=== PATIENT | male | born 1945 | race African-American/Black ===

== ENCOUNTER 2022-10-24 16:22 | Emergency (ER) | payer MEDICAID ==
[~2022-10-24] VITALS: Ht 157.5 cm; Wt 55.9 kg
[2022-10-24 16:23] VITALS: BP 146/76
--- NOTE | 2022-10-24 19:22 | NUR ---
PT PLACED IN BED
[2022-10-24 20:11] LABS: COLOR,URINE YELLOW (Yellow); GLUCOSE, URINE NEGATIVE (Neg); KETONES,URINE 15 mg/dl (Neg); LEUKOCYTE ESTERASE ,URINE TRACE (Neg); NITRITES, URINE NEGATIVE (Neg); OCCULT BLOOD,URINE NEGATIVE (Neg); PROTEIN,URINE NEGATIVE (Neg); UROBILINOGEN,URINE 0.2 E.U/dL (0.2-1.0)
[2022-10-24 20:14] LABS: BASOPHILS % (AUTO) 0.1 % (0-1); EOSINOPHILS % (AUTO) 0.6 % (0-6); HEMATOCRIT 31.2 % (42.0-52.0); HEMOGLOBIN 10.8 g/dl (14.0-17.9); LYMPHOCYTES # (AUTO) 0.8 X10'3 (1.1-4.8); LYMPHOCYTES % (AUTO) 10.3 % (21-51); MEAN CORPUSCULAR HGB CONC 34.7 g/dL (33.0-36.5); MEAN CORPUSCULAR VOLUME 89.3 FL (78-98); MEAN PLATELET VOLUME 7.5 FL (7.4-10.4); MONOCYTES # (AUTO) 0.7 X10'3 (0-0.9); NEUTROPHILS # (AUTO) 6.1 X10'3 (1.8-7.7); PLATELET COUNT 269 X10'3 (140-440); RED CELL DISTRIBUTION WIDTH 13.6 % (11.5-14.5); WHITE BLOOD COUNT 7.7 X10'3 (4.5-11.0)
[2022-10-24 20:16] LABS: CLARITY,URINE SLIGHTLY CLOUDY (Clear); UA COLLECTION TYPE URINAL
[2022-10-24 20:17] LABS: COARSE GRANULAR CAST 0-3 /LPF (NEGATIVE); MUCUS STRANDS FEW /LPF (Neg); SQUAMOUS EPITHELIAL CELL,UR FEW /LPF (FEW)
[2022-10-24 20:18] LABS: BACTERIA,URINE FEW /HPF (Neg); HYALINE CASTS 0-3 /LPF (NEGATIVE); RBC,URINE 0-2 /HPF (0-2); TRANSITIONAL EPI CELLS,URINE FEW /HPF
[2022-10-24 20:19] LABS: ALANINE AMINOTRANSFERASE 21 U/L (12-78); ALBUMIN 3.8 G/DL (3.4-5.0); ALBUMIN/GLOBULIN RATIO 1.3 (1.1-1.5); ALKALINE PHOSPHATASE 59 IU/L (46-116); ANION GAP 9 (8-16); ASPARTATE AMINO TRANSFERASE 25 U/L (10-37); BILIRUBIN,TOTAL 0.8 MG/DL (0.1-1.0); BLOOD UREA NITROGEN 12 MG/DL (7-18); BUN/CREATININE RATIO 12.6 (10.0-20.0); CALCIUM 9.3 MG/DL (8.5-10.1); CHLORIDE 107 MMOL/L (99-107); CREATININE 0.95 MG/DL (0.60-1.10); GLUCOSE 107 MG/DL (70-104); POTASSIUM 3.9 MMOL/L (3.5-5.1); SODIUM 143 MMOL/L (135-145); TOTAL CARBON DIOXIDE 26.7 MMOL/L (24-32); TOTAL PROTEIN 6.8 G/DL (6.4-8.2); eGFR 77 ML/MIN
[2022-10-24 20:19] LABS: WBC CLUMPS,URINE FEW /HPF (NEGATIVE)
[2022-10-24] MEDS ORDERED: furosemide 10 MG/1 ML 10ml inj IV ONE (20:55)
[2022-10-24] MEDS ORDERED: CefTRIAXone 2gm/D5W 50ml BAG 50 ML IV ONE (20:55)
[2022-10-24] MEDS ORDERED: CEPH-585 PO (21:08)
--- NOTE | 2022-10-24 21:42 | NUR ---
IV DC'D PT BEING DISCHARGED DRESSING APPLIED
== END 2022-10-24 21:44 | disposition home or self-care (01) ==
LOC: ER 16:23
DX: N39.0 Urinary tract infection, site not specified (principal); R60.9 Edema, unspecified; I10 Essential (primary) hypertension
CPT/HCPCS: 36415; 80053; 81001; 83880; 85025; 87088; 96365; 96375; 99284; J0696; J1940

== ENCOUNTER 2022-12-10 15:09 | Inpatient (IN) | payer MEDICAID ==
[~2022-12-10] VITALS: Ht 170.2 cm; Wt 56.8 kg
[~2022-12-10 15:09] MED LIST: CEPH-585 PO
[2022-12-10 15:55] LABS: BASOPHILS % (AUTO) 0.2 % (0-1); EOSINOPHILS % (AUTO) 0 % (0-6); HEMATOCRIT 33.7 % (42.0-52.0); HEMOGLOBIN 11.5 g/dl (14.0-17.9); LYMPHOCYTES # (AUTO) 0.2 X10'3 (1.1-4.8); LYMPHOCYTES % (AUTO) 1.3 % (21-51); MEAN CORPUSCULAR HEMOGLOBIN 30.1 PG (27.0-31.0); MEAN CORPUSCULAR HGB CONC 34.2 g/dL (33.0-36.5); MEAN CORPUSCULAR VOLUME 87.9 FL (78-98); MEAN PLATELET VOLUME 7.9 FL (7.4-10.4); MONOCYTES # (AUTO) 1.3 X10'3 (0-0.9); MONOCYTES % (AUTO) 8.2 % (2-12); NEUTROPHILS # (AUTO) 13.9 X10'3 (1.8-7.7); NEUTROPHILS % (AUTO) 90.3 % (42-75); PLATELET COUNT 218 X10'3 (140-440); RED BLOOD COUNT 3.83 X10'6 (4.70-6.10); RED CELL DISTRIBUTION WIDTH 13.9 % (11.5-14.5); WHITE BLOOD COUNT 15.4 X10'3 (4.5-11.0)
[2022-12-10 16:06] LABS: ALANINE AMINOTRANSFERASE 7 U/L (12-78); ALBUMIN 3.4 G/DL (3.4-5.0); ALKALINE PHOSPHATASE 63 IU/L (46-116); ANION GAP 11 (8-16); ASPARTATE AMINO TRANSFERASE 41 U/L (10-37); BILIRUBIN,TOTAL 1.6 MG/DL (0.1-1.0); BLOOD UREA NITROGEN 8 MG/DL (7-18); BUN/CREATININE RATIO 8.7 (10.0-20.0); CALCIUM 9.5 MG/DL (8.5-10.1); CHLORIDE 104 MMOL/L (99-107); CREATININE 0.92 MG/DL (0.60-1.10); GLUCOSE 130 MG/DL (70-104); POTASSIUM 3.5 MMOL/L (3.5-5.1); SODIUM 140 MMOL/L (135-145); TOTAL CARBON DIOXIDE 25.1 MMOL/L (24-32); TOTAL PROTEIN 6.8 G/DL (6.4-8.2); eGFR > 90 ML/MIN
[2022-12-10 16:15] LABS: CLARITY,URINE CLOUDY (Clear); COLOR,URINE YELLOW (Yellow); GLUCOSE, URINE NEGATIVE (Neg); KETONES,URINE NEGATIVE (Neg); LEUKOCYTE ESTERASE ,URINE LARGE (Neg); NITRITES, URINE NEGATIVE (Neg); OCCULT BLOOD,URINE LARGE (Neg); PH,URINE 5.5 (4.8-8.0); PROTEIN,URINE TRACE mg/dl (Neg); UROBILINOGEN,URINE 0.2 E.U/dL (0.2-1.0)
[2022-12-10 16:28] LABS: UA COLLECTION TYPE STRAIGHT CATH
[2022-12-10 16:29] LABS: HYALINE CASTS 0-3 /LPF (NEGATIVE); MUCUS STRANDS FEW /LPF (Neg); SQUAMOUS EPITHELIAL CELL,UR FEW /LPF (FEW)
[2022-12-10 16:30] LABS: BACTERIA,URINE 1+ /HPF (Neg); RBC,URINE TNTC /HPF (0-2); WBC CLUMPS,URINE MANY /HPF (NEGATIVE); WBC,URINE TNTC /HPF (0-4)
[2022-12-10] MEDS ORDERED: CefTRIAXone 1000mg IM Kit (w/lidocaine diluent) IM ONE (17:10)
[2022-12-10] MEDS ORDERED: CefTRIAXone/D5W-Rocephin 1gm 50 ML IV ONE (17:40)
[2022-12-10] MEDS ORDERED: magnesium 4gm in 100ml NS 100 ML IV PRN (18:10)
[2022-12-10] MEDS ORDERED: ondansetron/PF 4mg/2ml inj IV PRN (18:10)
[2022-12-10] MEDS ORDERED: mag hydrox/Alum hydrox/simeth 30ml oral suspension PO PRN (18:10)
[2022-12-10] MEDS ORDERED: potassium Cl 20 mEq SR tablet PO PRN (18:10)
[2022-12-10] MEDS ORDERED: magnesium hydroxide 30ml (MOM) UD suspension PO PRN (18:10)
[2022-12-10] MEDS: normal saline 1000ml 1,000 ML IV SCH ×2 (18:30→23:42)
[2022-12-10] MEDS ORDERED: PERFLUTREN PROTEIN-A MICROSPHR (Optison) 0.22 MG/ML 3ML VIAL IV ONE (18:40)
[2022-12-10] MEDS ORDERED: CARB1TAB36 PO (19:30)
[2022-12-10] MEDS ORDERED: SPIR25TA5 PO (19:30)
[2022-12-10] MEDS ORDERED: LOSA50TA64 PO (19:30)
[2022-12-10] MEDS ORDERED: ASPI81TA52 PO (19:30)
[2022-12-10] MEDS ORDERED: FURO40TA4 PO (19:30)
[2022-12-10] MEDS: carbidoba-levodopa 25-100mg tablet PO SCH (20:49)
[2022-12-10] MEDS: heparin, porcine 5000 units/ml vial SQ SCH (20:51)
[2022-12-11] MEDS: acetaminophen 325mg tablet PO PRN (02:59)
[2022-12-11 03:02] LABS: BASOPHILS % (AUTO) 0.1 % (0-1); EOSINOPHILS % (AUTO) 0.1 % (0-6); HEMATOCRIT 31.4 % (42.0-52.0); HEMOGLOBIN 10.6 g/dl (14.0-17.9); LYMPHOCYTES # (AUTO) 0.8 X10'3 (1.1-4.8); LYMPHOCYTES % (AUTO) 5.4 % (21-51); MEAN CORPUSCULAR HGB CONC 33.8 g/dL (33.0-36.5); MEAN CORPUSCULAR VOLUME 88.9 FL (78-98); MEAN PLATELET VOLUME 8.5 FL (7.4-10.4); MONOCYTES # (AUTO) 1.3 X10'3 (0-0.9); MONOCYTES % (AUTO) 8.5 % (2-12); NEUTROPHILS # (AUTO) 13.3 X10'3 (1.8-7.7); NEUTROPHILS % (AUTO) 85.9 % (42-75); PLATELET COUNT 193 X10'3 (140-440); RED BLOOD COUNT 3.53 X10'6 (4.70-6.10); RED CELL DISTRIBUTION WIDTH 13.6 % (11.5-14.5); WHITE BLOOD COUNT 15.5 X10'3 (4.5-11.0)
--- NOTE | 2022-12-11 03:09 | NUR ---
PT INCONTINENT OF URINE, TOTAL LINEN AND GOWN CHANGE. PICTURES OF PRESSURE ULCERS TAKEN AND PLACED IN CHART. WOUND CARE CONSULT ORDERED. CONDOM CATH APPLIED. PT TURNED OFF OF SACRUM
[2022-12-11 03:18] LABS: ALANINE AMINOTRANSFERASE 9 U/L (12-78); ALBUMIN 3.1 G/DL (3.4-5.0); ALKALINE PHOSPHATASE 59 IU/L (46-116); ANION GAP 10 (8-16); ASPARTATE AMINO TRANSFERASE 54 U/L (10-37); BILIRUBIN,TOTAL 1.4 MG/DL (0.1-1.0); BLOOD UREA NITROGEN 8 MG/DL (7-18); BUN/CREATININE RATIO 9.2 (10.0-20.0); CALCIUM 9.3 MG/DL (8.5-10.1); CHLORIDE 106 MMOL/L (99-107); CREATININE 0.87 MG/DL (0.60-1.10); GLUCOSE 100 MG/DL (70-104); MAGNESIUM 1.9 MG/DL (1.5-2.4); PHOSPHORUS 3.4 MG/DL (2.3-4.5); POTASSIUM 3.7 MMOL/L (3.5-5.1); SODIUM 142 MMOL/L (135-145); TOTAL CARBON DIOXIDE 26.2 MMOL/L (24-32); TOTAL PROTEIN 6.3 G/DL (6.4-8.2); eGFR > 90 ML/MIN
--- NOTE | 2022-12-11 06:24 | NUR ---
ATTEMPTED TO CALL REPORT FLOOR NURSE UNAVAILABLE
--- NOTE | 2022-12-11 06:39 | NUR ---
SECOND ATTEMPT TO CALL REPORT, NURSE UNAVAILABLE TO TAKE REPORT
[2022-12-11 07:43] VITALS: BP 149/78; PULSE 66; RESP 16; TEMP 97.3; O2SAT 98
[2022-12-11 08:00] VITALS: RESP 16
[2022-12-11] MEDS: losartan 50mg tablet PO SCH (08:00)
[2022-12-11] MEDS: aspirin 81mg, enteric-coated 1 TAB TABLET.DR PO SCH (08:00)
[2022-12-11] MEDS: CefTRIAXone/D5W-Rocephin 1gm 50 ML IV SCH (08:19)
[2022-12-11] MEDS: spironolactone 25 MG tablet PO SCH (09:24)
[2022-12-11] MEDS: furosemide 40mg tablet PO SCH (09:28)
[2022-12-11] MEDS: carbidoba-levodopa 25-100mg tablet PO SCH ×4 (09:31→20:10)
[2022-12-11] MEDS: heparin, porcine 5000 units/ml vial SQ SCH ×2 (09:32→20:11)
[2022-12-11 10:32] VITALS: BP 137/76; PULSE 88; RESP 12; TEMP 98.1; O2SAT 99
--- NOTE | 2022-12-11 12:14 | NUR ---
Calorie Count Consult "wound": RD d/w RN, supposed to be wound consult per RN. Pt w/ IAD to coccyx and R buttock per physical assessment pending WOC assessment this admit. Per RN, pt PO 100% breakfast w/ feeder given Parkinson's hx. Will monitor for WOC notes and nutrition intervention needs. Addendum: 12/11/22 at [address] Amended: Links added.
--- NOTE | 2022-12-11 17:46 | NUR ---
Patient has been able to swallow pills and drink water. He is able to answer questions with 3-5 word sentences, he is very lethargic currently. Fluids running as ordered, Q2H turns throughout the day.
[2022-12-11 18:00] VITALS: BP 113/59; PULSE 79; RESP 20; TEMP 98.2; O2SAT 98
--- NOTE | 2022-12-11 18:20 | NUR ---
Report given to Christine
[2022-12-11 22:00] VITALS: BP 127/63; PULSE 77; RESP 18; TEMP 99.1; O2SAT 98
--- NOTE | 2022-12-12 03:48 | NUR ---
Student documentation: I have reviewed and agree with all interventions, assessments performed and documented by EDE Koehler[].
[2022-12-12 06:00] VITALS: BP 123/63; PULSE 74; RESP 18; TEMP 98.8; O2SAT 96
[2022-12-12 06:03] LABS: BASOPHILS % (AUTO) 0.4 % (0-1); EOSINOPHILS % (AUTO) 0.6 % (0-6); HEMATOCRIT 26.4 % (42.0-52.0); LYMPHOCYTES # (AUTO) 0.6 X10'3 (1.1-4.8); LYMPHOCYTES % (AUTO) 11.8 % (21-51); MEAN CORPUSCULAR HEMOGLOBIN 30.2 PG (27.0-31.0); MEAN CORPUSCULAR VOLUME 88.9 FL (78-98); MEAN PLATELET VOLUME 9.4 FL (7.4-10.4); MONOCYTES # (AUTO) 0.4 X10'3 (0-0.9); MONOCYTES % (AUTO) 8.9 % (2-12); NEUTROPHILS # (AUTO) 3.9 X10'3 (1.8-7.7); NEUTROPHILS % (AUTO) 78.3 % (42-75); PLATELET COUNT 162 X10'3 (140-440); RED BLOOD COUNT 2.97 X10'6 (4.70-6.10); RED CELL DISTRIBUTION WIDTH 13.5 % (11.5-14.5)
--- NOTE | 2022-12-12 06:13 | NUR ---
Problems reprioritized. Patient report given, questions answered & plan of care reviewed with Yin LEIVA.
[2022-12-12 06:14] LABS: ALANINE AMINOTRANSFERASE 7 U/L (12-78); ALBUMIN 2.5 G/DL (3.4-5.0); ALBUMIN/GLOBULIN RATIO 0.9 (1.1-1.5); ALKALINE PHOSPHATASE 52 IU/L (46-116); ANION GAP 7 (8-16); ASPARTATE AMINO TRANSFERASE 38 U/L (10-37); BILIRUBIN,TOTAL 0.5 MG/DL (0.1-1.0); BLOOD UREA NITROGEN 14 MG/DL (7-18); BUN/CREATININE RATIO 14.6 (10.0-20.0); CALCIUM 8.2 MG/DL (8.5-10.1); CHLORIDE 107 MMOL/L (99-107); CREATININE 0.96 MG/DL (0.60-1.10); GLUCOSE 88 MG/DL (70-104); MAGNESIUM 1.7 MG/DL (1.5-2.4); POTASSIUM 3.6 MMOL/L (3.5-5.1); SODIUM 142 MMOL/L (135-145); TOTAL CARBON DIOXIDE 27.7 MMOL/L (24-32); TOTAL PROTEIN 5.3 G/DL (6.4-8.2); eGFR > 90 ML/MIN
--- NOTE | 2022-12-12 06:14 | NUR ---
Problems reprioritized. Patient report given, questions answered & plan of care reviewed with Kelli LEIVA.
--- NOTE | 2022-12-12 06:45 | NUR ---
Report received from Summer RN. Questions answered.
[2022-12-12 07:00] VITALS: BP 131/55; PULSE 63; RESP 16; TEMP 98.2; O2SAT 98
--- NOTE | 2022-12-12 07:00 | NUR ---
Assumed patient care, admit alert and appropriate at this time. Introduced myself, oriented to room, call light and fall prevention.
[2022-12-12 08:00] VITALS: RESP 18; O2SAT 96
[2022-12-12] MEDS: CefTRIAXone/D5W-Rocephin 1gm 50 ML IV SCH (08:16)
[2022-12-12] MEDS: furosemide 40mg tablet PO SCH (08:19)
[2022-12-12] MEDS: losartan 50mg tablet PO SCH (08:19)
[2022-12-12] MEDS: aspirin 81mg, enteric-coated 1 TAB TABLET.DR PO SCH (08:19)
[2022-12-12] MEDS: carbidoba-levodopa 25-100mg tablet PO SCH ×4 (08:20→21:24)
[2022-12-12] MEDS: spironolactone 25 MG tablet PO SCH (08:20)
[2022-12-12] MEDS: heparin, porcine 5000 units/ml vial SQ SCH ×2 (08:23→21:25)
[2022-12-12 10:00] VITALS: BP 96/54; PULSE 81; RESP 16; TEMP 98.8; O2SAT 97
--- NOTE | 2022-12-12 15:23 | NUR ---
PRESSURE ULCER EDUCATION: DEFINITION: A pressure ulcer is an area of skin that breaks down when you stay in one position too long. The constant pressure against the skin reduces the blood flow to that area and the affected tissue dies. CAUSES: "Being bedridden or in a wheelchair "Fragile skin "Having a chronic condition, such as diabetes or vascular disease "Inability to move certain parts of your body without assistance "Older age "Incontinence of urine or stool SYMPTOMS: "A reddened area that DOES NOT turn white when pressed on - this can be the beginning of a pressure ulcer "A blister, deep sore or a crater - these can be advanced pressure ulcers FIRST AID: "Relieve the pressure on this area "Keep the area clean and dry "Call your primary doctor if you see any of the above symptoms "DO NOT massage the area "DO NOT use a donut shaped or ring shaped pillow- these actually interfere with the blood flow and cause complications PREVENTION: "Check for pressure ulcers everyday "Change position at least every two hours to relieve pressure "Use items that help relieve pressure- pillows, sheepskin, foam padding, and powders. "Keep skin clean and dry "Eat healthy well balanced meals "Exercise daily IF YOU SEE ANY OF THESE SYMPTOMS WHILE IN THE HOSPITAL - TELL YOUR NURSE IMMEDIATELY. IF YOU SEE ANY OF THESE SYMPTOMS WHILE AT HOME OR HAVE ANY QUESTIONS OR CONCERNS ABOUT PRESSURE ULCERS - CALL YOUR PRIMARY DOCTOR IMMEDIATELY. Addendum: 12/12/22 at 1524 by Netta Drake RN Amended: Links added.
--- NOTE | 2022-12-12 17:30 | NUR ---
I have reviewed and agree with interventions, assessments, and documentation by Yin Flores LVN.
[2022-12-12 18:00] VITALS: BP 119/69; PULSE 78; RESP 16; TEMP 99.3; O2SAT 99
--- NOTE | 2022-12-12 18:29 | NUR ---
Problems reprioritized. Patient report given, questions answered & plan of care reviewed with Aviva Son.
[2022-12-12 22:00] VITALS: BP 139/76; PULSE 80; RESP 18; TEMP 98.3; O2SAT 98
[2022-12-13 06:00] VITALS: BP 130/71; PULSE 66; RESP 16; TEMP 99.1; O2SAT 99
[2022-12-13 06:18] LABS: BASOPHILS % (AUTO) 0.5 % (0-1); EOSINOPHILS # (AUTO) 0.1 X10'3 (0-0.9); EOSINOPHILS % (AUTO) 1.5 % (0-6); HEMATOCRIT 28.9 % (42.0-52.0); HEMOGLOBIN 9.9 g/dl (14.0-17.9); LYMPHOCYTES # (AUTO) 0.5 X10'3 (1.1-4.8); LYMPHOCYTES % (AUTO) 13.3 % (21-51); MEAN CORPUSCULAR HEMOGLOBIN 30.1 PG (27.0-31.0); MEAN CORPUSCULAR HGB CONC 34.2 g/dL (33.0-36.5); MEAN CORPUSCULAR VOLUME 88.1 FL (78-98); MEAN PLATELET VOLUME 8.4 FL (7.4-10.4); MONOCYTES # (AUTO) 0.5 X10'3 (0-0.9); MONOCYTES % (AUTO) 14.7 % (2-12); NEUTROPHILS # (AUTO) 2.6 X10'3 (1.8-7.7); PLATELET COUNT 181 X10'3 (140-440); RED BLOOD COUNT 3.28 X10'6 (4.70-6.10); RED CELL DISTRIBUTION WIDTH 13.3 % (11.5-14.5); WHITE BLOOD COUNT 3.7 X10'3 (4.5-11.0)
[2022-12-13 06:44] LABS: ALANINE AMINOTRANSFERASE 10 U/L (12-78); ALBUMIN 2.7 G/DL (3.4-5.0); ALBUMIN/GLOBULIN RATIO 0.9 (1.1-1.5); ALKALINE PHOSPHATASE 55 IU/L (46-116); ANION GAP 7 (8-16); ASPARTATE AMINO TRANSFERASE 34 U/L (10-37); BILIRUBIN,TOTAL 0.3 MG/DL (0.1-1.0); BLOOD UREA NITROGEN 11 MG/DL (7-18); BUN/CREATININE RATIO 12.1 (10.0-20.0); CALCIUM 8.6 MG/DL (8.5-10.1); CHLORIDE 106 MMOL/L (99-107); CREATININE 0.91 MG/DL (0.60-1.10); GLUCOSE 86 MG/DL (70-104); MAGNESIUM 1.7 MG/DL (1.5-2.4); PHOSPHORUS 2.8 MG/DL (2.3-4.5); POTASSIUM 3.7 MMOL/L (3.5-5.1); SODIUM 142 MMOL/L (135-145); TOTAL CARBON DIOXIDE 29.1 MMOL/L (24-32); TOTAL PROTEIN 5.8 G/DL (6.4-8.2); eGFR > 90 ML/MIN
[2022-12-13] MEDS: CefTRIAXone/D5W-Rocephin 1gm 50 ML IV SCH (07:20)
[2022-12-13] MEDS: acetaminophen 325mg tablet PO PRN (07:32)
[2022-12-13] MEDS: spironolactone 25 MG tablet PO SCH (07:33)
[2022-12-13] MEDS: aspirin 81mg, enteric-coated 1 TAB TABLET.DR PO SCH (07:33)
[2022-12-13] MEDS: heparin, porcine 5000 units/ml vial SQ SCH ×2 (07:33→20:49)
[2022-12-13] MEDS: losartan 50mg tablet PO SCH (07:33)
[2022-12-13] MEDS: furosemide 40mg tablet PO SCH (07:33)
[2022-12-13] MEDS: carbidoba-levodopa 25-100mg tablet PO SCH ×4 (07:33→20:44)
[2022-12-13 08:00] VITALS: RESP 16; O2SAT 99
[2022-12-13 10:00] VITALS: BP 109/58; PULSE 74; RESP 15; TEMP 98.2; O2SAT 98
--- NOTE | 2022-12-13 17:21 | NUR ---
Spoke to patients family about possible transfer to rehab center- agreeable. Explained general process with questions answered to the best of my ability. States they will contact case management.
[2022-12-13 18:00] VITALS: BP 144/78; PULSE 71; RESP 16; TEMP 98.5; O2SAT 99
--- NOTE | 2022-12-13 18:00 | NUR ---
I have reviewed and agree with the interventions, assessments, and documentation by Yin Flores LVN.
--- NOTE | 2022-12-13 18:45 | NUR ---
Patient in room ORTHO 4012. I have received report from Yin Handley and had the opportunity to ask questions and assume patient care.
[2022-12-13 19:50] VITALS: RESP 16; O2SAT 99
[2022-12-13 22:00] VITALS: BP 140/77; PULSE 71; RESP 14; TEMP 98.7; O2SAT 100
[2022-12-14 06:00] VITALS: BP 127/72; PULSE 67; RESP 16; TEMP 98; O2SAT 99
--- NOTE | 2022-12-14 06:30 | NUR ---
Problems reprioritized. Patient report given, questions answered & plan of care reviewed with Yin LEIVA.
[2022-12-14 06:53] LABS: BASOPHILS % (AUTO) 0.8 % (0-1); EOSINOPHILS # (AUTO) 0.1 X10'3 (0-0.9); EOSINOPHILS % (AUTO) 2.3 % (0-6); HEMATOCRIT 29.7 % (42.0-52.0); HEMOGLOBIN 10.2 g/dl (14.0-17.9); LYMPHOCYTES # (AUTO) 0.8 X10'3 (1.1-4.8); LYMPHOCYTES % (AUTO) 21.3 % (21-51); MEAN CORPUSCULAR HEMOGLOBIN 30.2 PG (27.0-31.0); MEAN CORPUSCULAR HGB CONC 34.2 g/dL (33.0-36.5); MEAN CORPUSCULAR VOLUME 88.2 FL (78-98); MEAN PLATELET VOLUME 8.2 FL (7.4-10.4); MONOCYTES # (AUTO) 0.7 X10'3 (0-0.9); MONOCYTES % (AUTO) 19.6 % (2-12); PLATELET COUNT 213 X10'3 (140-440); RED BLOOD COUNT 3.36 X10'6 (4.70-6.10); RED CELL DISTRIBUTION WIDTH 13.4 % (11.5-14.5); WHITE BLOOD COUNT 3.5 X10'3 (4.5-11.0)
[2022-12-14 07:08] LABS: ALANINE AMINOTRANSFERASE 11 U/L (12-78); ALBUMIN 2.7 G/DL (3.4-5.0); ALBUMIN/GLOBULIN RATIO 0.8 (1.1-1.5); ALKALINE PHOSPHATASE 60 IU/L (46-116); ANION GAP 4 (8-16); ASPARTATE AMINO TRANSFERASE 35 U/L (10-37); BILIRUBIN,TOTAL 0.3 MG/DL (0.1-1.0); BLOOD UREA NITROGEN 14 MG/DL (7-18); BUN/CREATININE RATIO 17.1 (10.0-20.0); CALCIUM 8.9 MG/DL (8.5-10.1); CHLORIDE 107 MMOL/L (99-107); CREATININE 0.82 MG/DL (0.60-1.10); GLUCOSE 87 MG/DL (70-104); MAGNESIUM 2.1 MG/DL (1.5-2.4); PHOSPHORUS 2.9 MG/DL (2.3-4.5); POTASSIUM 4.3 MMOL/L (3.5-5.1); SODIUM 140 MMOL/L (135-145); TOTAL CARBON DIOXIDE 29.4 MMOL/L (24-32); eGFR > 90 ML/MIN
[2022-12-14 08:00] VITALS: RESP 14; O2SAT 100
[2022-12-14 08:27] LABS: TOTAL CELLS COUNTED 100
[2022-12-14 08:29] LABS: PLATELET ESTIMATE NORMAL
[2022-12-14] MEDS: aspirin 81mg, enteric-coated 1 TAB TABLET.DR PO SCH (08:36)
[2022-12-14] MEDS: furosemide 40mg tablet PO SCH (08:36)
[2022-12-14] MEDS: carbidoba-levodopa 25-100mg tablet PO SCH ×4 (08:36→20:54)
[2022-12-14] MEDS: losartan 50mg tablet PO SCH (08:36)
[2022-12-14] MEDS: spironolactone 25 MG tablet PO SCH (08:36)
[2022-12-14] MEDS: heparin, porcine 5000 units/ml vial SQ SCH ×2 (08:37→20:56)
[2022-12-14 10:00] VITALS: BP 99/57; PULSE 80; RESP 14; TEMP 98; O2SAT 100
[2022-12-14] MEDS: CefTRIAXone/D5W-Rocephin 1gm 50 ML IV SCH (10:20)
--- NOTE | 2022-12-14 10:35 | NUR ---
F/u 12/13: Pt w/ coccyx III and R buttock II PI's per WOC note. Pt admit DX UTI, SOB, and coccyx stage3 wound w/ hx Parkinson's per EMR. PO ~100% avg Na-restricted diet meeting estimated needs though would benefit from Josias smoothie BID for wound healing; ABHILASH d/w RN and MD at pt bedside who is agreeable. Pending physician ONS orders in EMR. Pt received assistance w/ meals given hx and no texture changes per IMPROVEMENT ADVISOR recs. LBM 12/12 received PRN MoM 12/13 per EMR. Will continue to follow. Rec: 1. continue Na-restricted diet; assistance w/ meals 2. Josias smoothie BID for wound healing; pending physician orders in EMR 3. routine bowel care 4. scaled wt this admit; subsequent weekly wt Addendum: 12/14/22 at [address] Amended: Links added.
[2022-12-14] MEDS ORDERED: bisacodyl 10mg suppository rectal RC PRN (12:50)
[2022-12-14] MEDS: JUVEN Shake w/Arg/Glut/Ca2+Bmb (Juven 19.3gm) pkt 240ml PO SCH ×2 (13:00→18:12)
[2022-12-14 18:00] VITALS: BP 121/73; PULSE 70; RESP 17; TEMP 98.5; O2SAT 100
--- NOTE | 2022-12-14 18:00 | NUR ---
I have reviewed and agree with interventions, assessments, and documentation by Yin Flores LVN.
[2022-12-14 20:00] VITALS: RESP 14; O2SAT 100
[2022-12-14] MEDS: docusate sod 100mg capsule PO SCH (20:54)
[2022-12-14] MEDS: polyethylene glycol 3350 17gm powd pack PO SCH (20:56)
--- NOTE | 2022-12-14 23:11 | NUR ---
Patient in room ORTHO 4012. I have received report from kimberlyn duenas and had the opportunity to ask questions and assume patient care.
--- NOTE | 2022-12-14 23:52 | NUR ---
COMMUTER TRAIN OPERATOR documentation: I have reviewed and agree with all interventions, assessments performed and documented by Yin LEIVA .
--- NOTE | 2022-12-15 02:14 | NUR ---
Problems reprioritized. Patient report given, questions answered & plan of care reviewed with damon jang.
[2022-12-15 06:00] VITALS: BP 144/86; PULSE 70; RESP 16; TEMP 98.1; O2SAT 100
--- NOTE | 2022-12-15 06:30 | NUR ---
Patient in room ORTHO 4012. I have received report from Lenora EAST and had the opportunity to ask questions and assume patient care.
--- NOTE | 2022-12-15 06:40 | NUR ---
Report to Angle Cowan.
[2022-12-15 06:49] LABS: BASOPHILS % (AUTO) 0.8 % (0-1); EOSINOPHILS # (AUTO) 0.1 X10'3 (0-0.9); EOSINOPHILS % (AUTO) 2.4 % (0-6); HEMATOCRIT 32.8 % (42.0-52.0); HEMOGLOBIN 11.2 g/dl (14.0-17.9); LYMPHOCYTES # (AUTO) 0.8 X10'3 (1.1-4.8); LYMPHOCYTES % (AUTO) 18.6 % (21-51); MEAN CORPUSCULAR HEMOGLOBIN 29.9 PG (27.0-31.0); MEAN CORPUSCULAR HGB CONC 34.1 g/dL (33.0-36.5); MEAN CORPUSCULAR VOLUME 87.8 FL (78-98); MEAN PLATELET VOLUME 7.8 FL (7.4-10.4); MONOCYTES # (AUTO) 0.7 X10'3 (0-0.9); MONOCYTES % (AUTO) 16.6 % (2-12); NEUTROPHILS # (AUTO) 2.7 X10'3 (1.8-7.7); NEUTROPHILS % (AUTO) 61.6 % (42-75); PLATELET COUNT 252 X10'3 (140-440); RED BLOOD COUNT 3.74 X10'6 (4.70-6.10); RED CELL DISTRIBUTION WIDTH 13.4 % (11.5-14.5); WHITE BLOOD COUNT 4.3 X10'3 (4.5-11.0)
[2022-12-15 07:05] LABS: ALANINE AMINOTRANSFERASE 18 U/L (12-78); ALBUMIN 2.9 G/DL (3.4-5.0); ALBUMIN/GLOBULIN RATIO 0.8 (1.1-1.5); ALKALINE PHOSPHATASE 56 IU/L (46-116); ANION GAP 7 (8-16); ASPARTATE AMINO TRANSFERASE 30 U/L (10-37); BILIRUBIN,TOTAL 0.3 MG/DL (0.1-1.0); BLOOD UREA NITROGEN 17 MG/DL (7-18); BUN/CREATININE RATIO 22.7 (10.0-20.0); CALCIUM 9.5 MG/DL (8.5-10.1); CHLORIDE 105 MMOL/L (99-107); CREATININE 0.75 MG/DL (0.60-1.10); GLUCOSE 95 MG/DL (70-104); MAGNESIUM 2.2 MG/DL (1.5-2.4); PHOSPHORUS 2.9 MG/DL (2.3-4.5); POTASSIUM 4.4 MMOL/L (3.5-5.1); SODIUM 140 MMOL/L (135-145); TOTAL CARBON DIOXIDE 28.3 MMOL/L (24-32); TOTAL PROTEIN 6.4 G/DL (6.4-8.2); eGFR > 90 ML/MIN
[2022-12-15 08:00] VITALS: RESP 16; O2SAT 100
[2022-12-15] MEDS: JUVEN Shake w/Arg/Glut/Ca2+Bmb (Juven 19.3gm) pkt 240ml PO SCH ×3 (08:00→18:50)
[2022-12-15] MEDS: CefTRIAXone/D5W-Rocephin 1gm 50 ML IV SCH ×2 (08:12→08:50)
[2022-12-15] MEDS: heparin, porcine 5000 units/ml vial SQ SCH ×2 (09:15→20:04)
[2022-12-15] MEDS: furosemide 40mg tablet PO SCH (09:16)
[2022-12-15] MEDS: losartan 50mg tablet PO SCH (09:16)
[2022-12-15] MEDS: carbidoba-levodopa 25-100mg tablet PO SCH ×4 (09:16→23:00)
[2022-12-15] MEDS: docusate sod 100mg capsule PO SCH ×2 (09:16→20:03)
[2022-12-15] MEDS: spironolactone 25 MG tablet PO SCH (09:17)
[2022-12-15] MEDS: aspirin 81mg, enteric-coated 1 TAB TABLET.DR PO SCH (09:17)
[2022-12-15 09:45] LABS: TOTAL CELLS COUNTED 100
[2022-12-15 09:46] LABS: LARGE PLATELETS FEW; PLATELET ESTIMATE NORMAL
--- NOTE | 2022-12-15 15:45 | NUR ---
ROCK CLIMBING INSTRUCTOR documentation: I have reviewed and agree with all interventions, assessments performed and documented by Angle Hartmann LVN .
[2022-12-15 18:00] VITALS: BP 100/63; PULSE 76; RESP 16; TEMP 98.1; O2SAT 99
--- NOTE | 2022-12-15 18:36 | NUR ---
Problems reprioritized. Patient report given, questions answered & plan of care reviewed with Padmini EAST.
--- NOTE | 2022-12-15 18:56 | NUR ---
Patient in room ORTHO 4012. I have received report from CALI GODWIN and had the opportunity to ask questions and assume patient care.
[2022-12-15 20:00] VITALS: RESP 16; O2SAT 99
[2022-12-15] MEDS: polyethylene glycol 3350 17gm powd pack PO SCH (20:03)
[2022-12-15 22:00] VITALS: BP 97/59; PULSE 86; RESP 14; TEMP 99.9; O2SAT 96
--- NOTE | 2022-12-16 00:42 | NUR ---
Problems reprioritized. Patient report given, questions answered & plan of care reviewed with CRUZITO GOMEZ AND CALI GUTIERREZ.
--- NOTE | 2022-12-16 00:45 | NUR ---
Patient in room ORTHO 4012. I have received report from Padmini EAST and had the opportunity to ask questions and assume patient care.
--- NOTE | 2022-12-16 03:14 | NUR ---
Patient in room ORTHO 4012. I have received report from wallace jang and had the opportunity to ask questions and assume patient care.
--- NOTE | 2022-12-16 04:10 | NUR ---
primary biology internship: I have reviewed and agree with all interventions, assessments performed and documented by Padmini RN.
[2022-12-16 06:00] VITALS: BP 100/56; PULSE 75; RESP 13; TEMP 98.1; O2SAT 99
--- NOTE | 2022-12-16 06:40 | NUR ---
Problems reprioritized. Patient report given, questions answered & plan of care reviewed with Eric EAST.
[2022-12-16] MEDS: carbidoba-levodopa 25-100mg tablet PO SCH ×4 (07:50→21:19)
[2022-12-16] MEDS: aspirin 81mg, enteric-coated 1 TAB TABLET.DR PO SCH (07:50)
[2022-12-16] MEDS: CefTRIAXone/D5W-Rocephin 1gm 50 ML IV SCH (07:50)
[2022-12-16] MEDS: docusate sod 100mg capsule PO SCH ×2 (07:50→21:19)
[2022-12-16] MEDS: heparin, porcine 5000 units/ml vial SQ SCH ×2 (07:51→21:19)
[2022-12-16 08:00] VITALS: RESP 13; O2SAT 99
[2022-12-16] MEDS: losartan 50mg tablet PO SCH (08:00)
[2022-12-16] MEDS: spironolactone 25 MG tablet PO SCH (08:00)
[2022-12-16] MEDS: furosemide 40mg tablet PO SCH (08:00)
[2022-12-16] MEDS: JUVEN Shake w/Arg/Glut/Ca2+Bmb (Juven 19.3gm) pkt 240ml PO SCH ×3 (08:03→17:47)
[2022-12-16 10:00] VITALS: BP 108/61; PULSE 77; RESP 18; TEMP 97.8; O2SAT 98
--- NOTE | 2022-12-16 16:21 | NUR ---
gave pt bed bath and tolerated well and changed linens
[2022-12-16 18:00] VITALS: BP 111/67; PULSE 55; RESP 18; TEMP 98.6; O2SAT 98
--- NOTE | 2022-12-16 18:15 | NUR ---
Patient in room ORTHO 4012. I have received report from CRUZITO Reyes and had the opportunity to ask questions and assume patient care.
--- NOTE | 2022-12-16 18:41 | NUR ---
informed resident about pt low bp and that meds were held this am. bp does have a map of above 60. resident said can reevaluate tomorrow
--- NOTE | 2022-12-16 18:43 | NUR ---
Problems reprioritized. Patient report given, questions answered & plan of care reviewed with miladis jang.
--- NOTE | 2022-12-16 19:01 | NUR ---
Patient in room ORTHO 4011. I have received report from Eric EAST and had the opportunity to ask questions and assume patient care.
[2022-12-16 19:06] VITALS: BP 111/67; PULSE 55; RESP 18; TEMP 98.6; O2SAT 98
[2022-12-16] MEDS: polyethylene glycol 3350 17gm powd pack PO SCH (21:00)
[2022-12-16 22:00] VITALS: BP 117/70; PULSE 58; RESP 16; TEMP 98.6; O2SAT 95
[2022-12-17] VITALS (7 sets, daily range): BP systolic 86–123; BP diastolic 57–68; PULSE 60–98; RESP 14–16; TEMP 97.8–98.8; O2SAT 98–100
--- NOTE | 2022-12-17 06:18 | NUR ---
Problems reprioritized. Patient report given, questions answered & plan of care reviewed with CALI Barbour.
--- NOTE | 2022-12-17 06:20 | NUR ---
Patient in room ORTHO 4012. I have received report from Padmini ESAT/Akil LEIVA and had the opportunity to ask questions and assume patient care.
--- NOTE | 2022-12-17 06:24 | NUR ---
Problems reprioritized. Patient report given, questions answered & plan of care reviewed with Angle LEIVA.
[2022-12-17] MEDS: docusate sod 100mg capsule PO SCH ×2 (08:00→19:58)
[2022-12-17] MEDS: JUVEN Shake w/Arg/Glut/Ca2+Bmb (Juven 19.3gm) pkt 240ml PO SCH ×2 (08:00→18:00)
[2022-12-17] MEDS: carbidoba-levodopa 25-100mg tablet PO SCH ×4 (09:01→23:28)
[2022-12-17] MEDS: furosemide 40mg tablet PO SCH (09:01)
[2022-12-17] MEDS: aspirin 81mg, enteric-coated 1 TAB TABLET.DR PO SCH (09:02)
[2022-12-17] MEDS: losartan 50mg tablet PO SCH (09:02)
[2022-12-17] MEDS: spironolactone 25 MG tablet PO SCH (09:03)
[2022-12-17] MEDS: heparin, porcine 5000 units/ml vial SQ SCH ×2 (09:03→19:58)
[2022-12-17 11:01] LABS: BASOPHILS % (AUTO) 0.7 % (0-1); EOSINOPHILS # (AUTO) 0.1 X10'3 (0-0.9); HEMATOCRIT 35.5 % (42.0-52.0); HEMOGLOBIN 12.1 g/dl (14.0-17.9); LYMPHOCYTES % (AUTO) 14.6 % (21-51); MEAN CORPUSCULAR HEMOGLOBIN 30.2 PG (27.0-31.0); MEAN CORPUSCULAR HGB CONC 33.9 g/dL (33.0-36.5); MEAN CORPUSCULAR VOLUME 88.9 FL (78-98); MEAN PLATELET VOLUME 7.7 FL (7.4-10.4); MONOCYTES # (AUTO) 0.7 X10'3 (0-0.9); MONOCYTES % (AUTO) 11.2 % (2-12); NEUTROPHILS # (AUTO) 4.7 X10'3 (1.8-7.7); NEUTROPHILS % (AUTO) 72.5 % (42-75); PLATELET COUNT 337 X10'3 (140-440); RED CELL DISTRIBUTION WIDTH 13.5 % (11.5-14.5); WHITE BLOOD COUNT 6.5 X10'3 (4.5-11.0)
[2022-12-17 11:06] LABS: ALBUMIN 3.3 G/DL (3.4-5.0); ANION GAP 9 (8-16); BLOOD UREA NITROGEN 29 MG/DL (7-18); BUN/CREATININE RATIO 32.2 (10.0-20.0); CALCIUM 9.4 MG/DL (8.5-10.1); CHLORIDE 104 MMOL/L (99-107); GLUCOSE 144 MG/DL (70-104); POTASSIUM 4.4 MMOL/L (3.5-5.1); SODIUM 139 MMOL/L (135-145); TOTAL CARBON DIOXIDE 25.9 MMOL/L (24-32); eGFR > 90 ML/MIN
[2022-12-17] MEDS ORDERED: CefTRIAXone/D5W-Rocephin 1gm 50 ML IV ONE (15:00)
--- NOTE | 2022-12-17 15:13 | NUR ---
SALES PLANNING MANAGER documentation: I have reviewed and agree with all interventions, assessments performed and documented by Angle Hartmann LVN.
--- NOTE | 2022-12-17 18:20 | NUR ---
Patient in room ORTHO 4012. I have received report from CALI GODWIN and had the opportunity to ask questions and assume patient care.
--- NOTE | 2022-12-17 18:49 | NUR ---
Problems reprioritized. Patient report given, questions answered & plan of care reviewed with Padmini EAST.
[2022-12-17] MEDS: polyethylene glycol 3350 17gm powd pack PO SCH (19:59)
[2022-12-18 00:42] VITALS: BP 102/55; PULSE 78; RESP 18; TEMP 98.7; O2SAT 100
[2022-12-18 06:00] VITALS: BP 111/66; PULSE 78; RESP 16; TEMP 97.8; O2SAT 100
--- NOTE | 2022-12-18 06:24 | NUR ---
Problems reprioritized. Patient report given, questions answered & plan of care reviewed with CRUZITO FERNANDO.
[2022-12-18] MEDS: JUVEN Shake w/Arg/Glut/Ca2+Bmb (Juven 19.3gm) pkt 240ml PO SCH ×3 (08:00→18:00)
[2022-12-18 09:30] VITALS: RESP 18
[2022-12-18] MEDS: carbidoba-levodopa 25-100mg tablet PO SCH ×4 (09:39→20:36)
[2022-12-18] MEDS: docusate sod 100mg capsule PO SCH ×2 (09:39→20:36)
[2022-12-18] MEDS: aspirin 81mg, enteric-coated 1 TAB TABLET.DR PO SCH (09:40)
[2022-12-18] MEDS: furosemide 40mg tablet PO SCH (09:40)
[2022-12-18] MEDS: losartan 50mg tablet PO SCH (09:41)
[2022-12-18] MEDS: heparin, porcine 5000 units/ml vial SQ SCH ×2 (09:45→20:37)
[2022-12-18] MEDS: spironolactone 25 MG tablet PO SCH (09:52)
[2022-12-18 10:55] VITALS: BP 115/67; PULSE 84; RESP 14; TEMP 98.1; O2SAT 100
[2022-12-18 18:00] VITALS: BP 95/56; PULSE 81; RESP 18; TEMP 97.6; O2SAT 100
--- NOTE | 2022-12-18 18:24 | NUR ---
Problems reprioritized. Patient report given, questions answered & plan of care reviewed with Christine EAST.
[2022-12-18] MEDS: polyethylene glycol 3350 17gm powd pack PO SCH (20:36)
--- NOTE | 2022-12-19 04:16 | NUR ---
GARMENT SEWER HAND documentation: I have reviewed and agree with assessment performed and documented by EDE Guallpa
[2022-12-19 06:20] VITALS: BP 121/65; PULSE 72; RESP 18; TEMP 97.5; O2SAT 100
--- NOTE | 2022-12-19 06:40 | NUR ---
Problems reprioritized. Patient report given, questions answered & plan of care reviewed with kavon EAST.
[2022-12-19] MEDS: JUVEN Shake w/Arg/Glut/Ca2+Bmb (Juven 19.3gm) pkt 240ml PO SCH ×2 (08:00→13:13)
[2022-12-19 08:30] VITALS: RESP 16
[2022-12-19] MEDS: furosemide 40mg tablet PO SCH (08:43)
[2022-12-19] MEDS: docusate sod 100mg capsule PO SCH (08:43)
[2022-12-19] MEDS: aspirin 81mg, enteric-coated 1 TAB TABLET.DR PO SCH (08:43)
[2022-12-19] MEDS: carbidoba-levodopa 25-100mg tablet PO SCH ×2 (08:43→13:09)
[2022-12-19] MEDS: losartan 50mg tablet PO SCH (08:44)
[2022-12-19] MEDS: heparin, porcine 5000 units/ml vial SQ SCH (08:45)
[2022-12-19] MEDS: spironolactone 25 MG tablet PO SCH (08:51)
[2022-12-19 10:00] VITALS: BP 121/70; PULSE 94; RESP 14; TEMP 98.1; O2SAT 100
--- NOTE | 2022-12-19 11:51 | NUR ---
F/u 12/19: Pt PO 100% Josias shake TIDWM per MD and mostly ~100% Na-restricted diet meeting estimated needs. LBM 12/18 receiving routine colace and miralax per EMR. No further nutrition interventions at this time. Will continue to follow. Rec: 1. continue Na-restricted diet; assistance w/ meals 2. Josias shake TIDWM per MD for wounds 3. bowel care per rx 4. scaled wt this admit; subsequent weekly wt Addendum: 12/19/22 at [address] Amended: Links added.
[2022-12-19] MEDS ORDERED: DOCU100C40 PO (13:59)
--- NOTE | 2022-12-19 16:17 | NUR ---
IV removed, education completed with family, verbal acknowledgement of understanding completed. Supplies sent with family, CC still on patient at family request.
== END 2022-12-19 16:20 | disposition home health service (06) | DRG 194 ==
LOC: ER 15:09 → ED HOLD 18:23 → EDBEDREQ 12-11 05:58 → ORTHO 4S 12-11 07:20
PROVIDERS: ADMIT Family Medicine; ATTEND Family Medicine
DX: I11.0 Hypertensive heart disease with heart failure (principal); L89.153 Pressure ulcer of sacral region, stage 3; R53.2 Functional quadriplegia; G20 Parkinson's disease; I50.33 Acute on chronic diastolic (congestive) heart failure; N30.01 Acute cystitis with hematuria; R32 Unspecified urinary incontinence; Z91.148 Patient's other noncompliance with medication regimen for other reason; Z86.73 Personal history of transient ischemic attack (TIA), and cerebral infarction without residual deficits; Z74.01 Bed confinement status
CPT/HCPCS: 36415; 71045; 76700; 80048; 80053; 81001; 83605; 83735; 83880; 84100; 84145; 84484; 85007; 85025; 87040; 87077; 87081; 87088; 87186; 92508; 92616; 93306; 97110; 97116; 97161; 97530; 97535; 99285; A4314; A4349; A4649; A6212; A6213; A6222; A6446; A6449; C1758; G0378; J0696; J1644; J7030; J7040

== ENCOUNTER 2024-01-23 15:28 | Emergency (ER) | payer MEDICAID ==
[~2024-01-23] VITALS: Ht 167.6 cm; Wt 51.5 kg
[~2024-01-23 15:28] MED LIST changes: +ASPI81TA52 PO; +CARB1TAB36 PO; -CEPH-585 PO; +DOCU100C40 PO; +FURO40TA4 PO; +LOSA50TA64 PO; +SPIR25TA5 PO
[2024-01-23 16:37] LABS: BASOPHILS % (AUTO) 0.6 % (0-1); EOSINOPHILS % (AUTO) 0.5 % (0-6); HEMATOCRIT 32.1 % (42.0-52.0); HEMOGLOBIN 10.8 g/dl (14.0-17.9); LYMPHOCYTES % (AUTO) 17.3 % (21-51); MEAN CORPUSCULAR HEMOGLOBIN 30.1 PG (27.0-31.0); MEAN CORPUSCULAR HGB CONC 33.7 g/dL (33.0-36.5); MEAN CORPUSCULAR VOLUME 89.3 FL (78-98); MEAN PLATELET VOLUME 7.8 FL (7.4-10.4); MONOCYTES # (AUTO) 0.7 X10'3 (0-0.9); MONOCYTES % (AUTO) 12.6 % (2-12); PLATELET COUNT 289 X10'3 (140-440); RED CELL DISTRIBUTION WIDTH 13.8 % (11.5-14.5); WHITE BLOOD COUNT 5.9 X10'3 (4.5-11.0)
[2024-01-23 16:52] VITALS: TEMP 98
[2024-01-23 16:55] LABS: ALBUMIN 3.9 G/DL (3.4-5.0); ANION GAP 9 (8-16); BLOOD UREA NITROGEN 19 MG/DL (7-18); BUN/CREATININE RATIO 16.2 (10.0-20.0); CALCIUM 9.7 MG/DL (8.5-10.1); CHLORIDE 108 MMOL/L (99-107); CREATININE 1.17 MG/DL (0.60-1.10); GLUCOSE 86 MG/DL (70-104); POTASSIUM 4.2 MMOL/L (3.5-5.1); PRO BRAIN NATRIURETIC PEPTIDE 129 PG/ML (0-450); SODIUM 144 MMOL/L (135-145); TOTAL CARBON DIOXIDE 27.3 MMOL/L (24-32); eCRCL 39 ML/MIN; eGFR 73 ML/MIN
[2024-01-23] MEDS ORDERED: iohexol 350MG/ML 100ml bottle IV ONE (18:09)
[2024-01-23 18:26] LABS: ALANINE AMINOTRANSFERASE 12 U/L (12-78); ALBUMIN/GLOBULIN RATIO 1.2 (1.1-1.5); ALKALINE PHOSPHATASE 59 IU/L (46-116); ASPARTATE AMINO TRANSFERASE 15 U/L (10-37); BILIRUBIN,DIRECT 0.3 MG/DL (0-0.3); BILIRUBIN,TOTAL 1.4 MG/DL (0.1-1.0); LIPASE 22 U/L (16-77); TOTAL PROTEIN 7.2 G/DL (6.4-8.2)
[2024-01-23 20:05] VITALS: BP 134/82; O2SAT 100
[2024-01-23 20:51] VITALS: PULSE 82; RESP 14
== END 2024-01-23 20:52 | disposition home or self-care (01) ==
LOC: ER 15:29
DX: R06.02 Shortness of breath (principal); I10 Essential (primary) hypertension; G20.A1 Parkinson's disease without dyskinesia, without mention of fluctuations; Z79.82 Long term (current) use of aspirin; Z79.899 Other long term (current) drug therapy; Z86.73 Personal history of transient ischemic attack (TIA), and cerebral infarction without residual deficits
CPT/HCPCS: 36415; 71045; 71275; 74177; 80048; 80076; 83605; 83690; 83880; 85025; 87040; 99285; Q9967

== ENCOUNTER 2024-02-01 12:20 | Inpatient (IN) | payer MEDICAID ==
[~2024-02-01] VITALS: Ht 175.3 cm; Wt 57.5 kg
[2024-02-01] MEDS ORDERED: iohexol 350MG/ML 100ml bottle IV ONE (12:23)
[2024-02-01] MEDS: normal saline 1000ml 1,000 ML IVB ONE ×2 (12:35→13:40)
[2024-02-01 12:54] LABS: BASOPHILS % (AUTO) 0.4 % (0-1); EOSINOPHILS % (AUTO) 0.2 % (0-6); HEMATOCRIT 29.3 % (42.0-52.0); HEMOGLOBIN 10.2 g/dl (14.0-17.9); LYMPHOCYTES # (AUTO) 1.3 X10'3 (1.1-4.8); LYMPHOCYTES % (AUTO) 23.3 % (21-51); MEAN CORPUSCULAR HEMOGLOBIN 30.8 PG (27.0-31.0); MEAN CORPUSCULAR HGB CONC 34.9 g/dL (33.0-36.5); MEAN CORPUSCULAR VOLUME 88.3 FL (78-98); MONOCYTES # (AUTO) 0.5 X10'3 (0-0.9); MONOCYTES % (AUTO) 9.5 % (2-12); NEUTROPHILS # (AUTO) 3.8 X10'3 (1.8-7.7); NEUTROPHILS % (AUTO) 66.6 % (42-75); PLATELET COUNT 289 X10'3 (140-440); RED BLOOD COUNT 3.32 X10'6 (4.70-6.10); WHITE BLOOD COUNT 5.7 X10'3 (4.5-11.0)
[2024-02-01 13:04] LABS: APTT 24 SECONDS (22-32); INR 1.1 INR; PROTHROMBIN TIME 11.4 SECONDS (9.0-12.0)
[2024-02-01 13:09] LABS: ALBUMIN 3.6 G/DL (3.4-5.0); ANION GAP 8 (8-16); BLOOD UREA NITROGEN 21 MG/DL (7-18); CALCIUM 9.4 MG/DL (8.5-10.1); CHLORIDE 105 MMOL/L (99-107); GLUCOSE 129 MG/DL (70-104); POTASSIUM 4.1 MMOL/L (3.5-5.1); SODIUM 140 MMOL/L (135-145); TOTAL CARBON DIOXIDE 26.6 MMOL/L (24-32); eCRCL 40 ML/MIN; eGFR 55 ML/MIN
[2024-02-01 14:09] LABS: BILIRUBIN,URINE NEGATIVE (Neg); CLARITY,URINE CLEAR (Clear); COLOR,URINE YELLOW (Yellow); GLUCOSE, URINE NEGATIVE (Neg); KETONES,URINE NEGATIVE (Neg); LEUKOCYTE ESTERASE ,URINE NEGATIVE (Neg); NITRITES, URINE NEGATIVE (Neg); OCCULT BLOOD,URINE MODERATE (Neg); PROTEIN,URINE NEGATIVE (Neg); UROBILINOGEN,URINE 0.2 E.U/dL (0.2-1.0)
[2024-02-01 14:11] LABS: UA COLLECTION TYPE FOLEY CATH
[2024-02-01] MEDS: ringers solution, lactated 1000ml IV soln IV ONE (14:11)
[2024-02-01 14:15] LABS: BACTERIA,URINE NONE SEEN /HPF (Neg); MUCUS STRANDS NONE SEEN /LPF (Neg); RBC,URINE 50-100 /HPF (0-2); SQUAMOUS EPITHELIAL CELL,UR FEW /LPF (FEW); WBC,URINE 0-4 /HPF (0-4)
[2024-02-01] MEDS: piperacillin/tazo 3.375gm/50ml 50 ML IV ONE (15:44)
[2024-02-01] MEDS: normal saline 1000ml 1,000 ML IV SCH (16:30)
[2024-02-01] MEDS ORDERED: DEXTROSE 15 GM of carb/4 tabs (each vial/BOTTLE has 4 tablets) PO PRN ×2 (16:30)
[2024-02-01] MEDS: aspirin 81mg, enteric-coated 1 TAB TABLET.DR PO ONE (16:30)
[2024-02-01] MEDS ORDERED: glucagon, human recombinant 1mg kit SUBCUT PRN (16:30)
[2024-02-01] MEDS ORDERED: dextrose 50%-water 50ml dispensing syringe IV PRN ×2 (16:30)
[2024-02-01] MEDS ORDERED: ipratropium/albuterol 3ml nebule NEB PRN (16:30)
[2024-02-01] MEDS ORDERED: magnesium sulf-water 4G/100mL 100 ML IV PRN (17:00)
[2024-02-01] MEDS ORDERED: potassium Cl 40MEQ/1/2NS 520ml 520 ML IV PRN (17:00)
[2024-02-01] MEDS: INSULIN LISPRO 100 UNIT/ML INSULN.PEN MULTI-DOSE SQ SCH (17:00)
[2024-02-01] MEDS ORDERED: magnesium sulf-water 2g/50mL 50 ML IV PRN (17:00)
[2024-02-01] MEDS: dextrose 5%-water 1,000 ML IV SCH (17:07)
[2024-02-01 17:44] VITALS: PULSE 90; RESP 24; O2SAT 97
[2024-02-01] MEDS: metoprolol tartrate 1mg/ml inj IV SCH (18:00)
[2024-02-01] MEDS ORDERED: GLYC1TAB23 PO (18:08)
[2024-02-01] MEDS ORDERED: ROPI0.5T37 PO (18:08)
[2024-02-01] MEDS ORDERED: DOCU-391 PO (18:08)
[2024-02-01] MEDS ORDERED: CHOL500050 PO (18:08)
[2024-02-01] MEDS ORDERED: CARB1CAP3 PO (18:08)
[2024-02-01] MEDS: K and/or MAG REPLACEMENT MC SCH (20:00)
[2024-02-01] MEDS: carbidoba-levodopa 25-100mg tablet PO SCH (20:31)
[2024-02-01] MEDS: apixaban 5mg tablet PO SCH (20:31)
[2024-02-01] MEDS: atorvastatin 20mg tablet PO SCH (20:31)
[2024-02-01 20:43] VITALS: PULSE 85; RESP 14; O2SAT 99
[2024-02-01] MEDS: HYDROcodone/acetaminophen 5mg/325mg tablet PO ONE (21:35)
[2024-02-01 22:14] VITALS: RESP 15; O2SAT 99
[2024-02-01 22:20] VITALS: BP 115/70; PULSE 79; RESP 15; TEMP 98.1; O2SAT 99
[2024-02-01] MEDS ORDERED: LORazepam 2 mg/ml vial IM PRN (22:55)
[2024-02-01] MEDS ORDERED: LORazepam 2 mg/ml vial IV PRN (22:55)
[2024-02-01] MEDS: pantoprazole 40 MG vial IV ONE (23:46)
[2024-02-02] VITALS (10 sets, daily range): BP systolic 90–121; BP diastolic 44–80; PULSE 63–79; RESP 12–16; TEMP 97.7–98.8; O2SAT 95–98
[2024-02-02] MEDS ORDERED: LORazepam 2 mg/ml vial IM PRN (00:25)
[2024-02-02] MEDS: LIDOcaine 5% patch TP PRN (02:55)
[2024-02-02] MEDS: LidoCAINE 2% Topical Jelly 11mL syringe (UROJET) TOP ONE (04:00)
[2024-02-02 07:51] LABS: BASOPHILS % (AUTO) 0.5 % (0-1); EOSINOPHILS % (AUTO) 0.8 % (0-6); HEMATOCRIT 24.5 % (42.0-52.0); HEMOGLOBIN 8.3 g/dl (14.0-17.9); LYMPHOCYTES # (AUTO) 0.8 X10'3 (1.1-4.8); LYMPHOCYTES % (AUTO) 14.5 % (21-51); MEAN CORPUSCULAR HEMOGLOBIN 29.9 PG (27.0-31.0); MEAN CORPUSCULAR HGB CONC 33.9 g/dL (33.0-36.5); MEAN CORPUSCULAR VOLUME 88.2 FL (78-98); MEAN PLATELET VOLUME 8.2 FL (7.4-10.4); MONOCYTES # (AUTO) 0.7 X10'3 (0-0.9); MONOCYTES % (AUTO) 12.4 % (2-12); NEUTROPHILS # (AUTO) 4.1 X10'3 (1.8-7.7); NEUTROPHILS % (AUTO) 71.8 % (42-75); PLATELET COUNT 197 X10'3 (140-440); RED BLOOD COUNT 2.78 X10'6 (4.70-6.10); WHITE BLOOD COUNT 5.7 X10'3 (4.5-11.0)
[2024-02-02 08:31] LABS: ALANINE AMINOTRANSFERASE 13 U/L (12-78); ALBUMIN 2.9 G/DL (3.4-5.0); ALBUMIN/GLOBULIN RATIO 1.1 (1.1-1.5); ALKALINE PHOSPHATASE 38 IU/L (46-116); ANION GAP 6 (8-16); ASPARTATE AMINO TRANSFERASE 93 U/L (10-37); BILIRUBIN,TOTAL 1.3 MG/DL (0.1-1.0); BLOOD UREA NITROGEN 15 MG/DL (7-18); BUN/CREATININE RATIO 12.2 (10.0-20.0); C-REACTIVE PROTEIN 0.36 MG/DL (0.0-0.5); CALCIUM 8.7 MG/DL (8.5-10.1); CHLORIDE 108 MMOL/L (99-107); CHOL/HDL RATIO 1.8 (0.00-4.99); CHOLESTEROL 100 MG/DL (0-200); CREATININE 1.23 MG/DL (0.60-1.10); GLUCOSE 94 MG/DL (70-104); HDL CHOLESTEROL 55 MG/DL (35-60); LDL CHOLESTEROL 41 MG/DL (50-100); MAGNESIUM 1.8 MG/DL (1.5-2.4); POTASSIUM 3.5 MMOL/L (3.5-5.1); SODIUM 141 MMOL/L (135-145); TOTAL PROTEIN 5.5 G/DL (6.4-8.2); TRIGLYCERIDES 32 MG/DL (20-135); eCRCL 42 ML/MIN; eGFR 69 ML/MIN
[2024-02-02 09:04] LABS: HEMOGLOBIN A1C 4.8 % (4.5-6.2)
[2024-02-02 09:07] LABS: URINE AMPHETAMINE SCREEN NEGATIVE (Neg); URINE BARBITUATE SCREEN NEGATIVE (Neg); URINE BENZODIAZEPINES SCREEN NEGATIVE (Neg); URINE CANNABINOID SCREEN NEGATIVE (Neg); URINE COCAINE SCREEN NEGATIVE (Neg); URINE METHADONE SCREEN NEGATIVE (Neg); URINE OPIATE SCREEN NEGATIVE (Neg); URINE PHENCYCLIDINE SCREEN NEGATIVE (Neg)
[2024-02-02] MEDS: aspirin 81mg, enteric-coated 1 TAB TABLET.DR PO SCH (09:54)
[2024-02-02] MEDS: pantoprazole 40 MG vial IV SCH (09:57)
[2024-02-02] MEDS: CefTRIAXone 2gm/D5W 50ml BAG 50 ML IV SCH (09:57)
[2024-02-02] MEDS: azithromycin/NS 500mg/250ml 250 ML IV SCH (10:44)
[2024-02-02] MEDS: traMADol 50MG tablet PO PRN (14:11)
[2024-02-02] MEDS: morphine 2 MG/ML inj. syringe IV PRN (16:56)
[2024-02-02] MEDS: docusate sod 100mg capsule PO SCH (20:22)
[2024-02-03] VITALS (10 sets, daily range): BP systolic 113–144; BP diastolic 64–84; PULSE 74–96; RESP 14–22; TEMP 98–99.2; O2SAT 91–97
[2024-02-03 07:26] LABS: BASOPHILS % (AUTO) 0.3 % (0-1); EOSINOPHILS % (AUTO) 0.8 % (0-6); HEMATOCRIT 26.3 % (42.0-52.0); LYMPHOCYTES # (AUTO) 0.9 X10'3 (1.1-4.8); LYMPHOCYTES % (AUTO) 13.9 % (21-51); MEAN CORPUSCULAR HEMOGLOBIN 30.1 PG (27.0-31.0); MEAN CORPUSCULAR VOLUME 88.3 FL (78-98); MEAN PLATELET VOLUME 8.7 FL (7.4-10.4); MONOCYTES # (AUTO) 0.7 X10'3 (0-0.9); MONOCYTES % (AUTO) 11.9 % (2-12); NEUTROPHILS # (AUTO) 4.5 X10'3 (1.8-7.7); NEUTROPHILS % (AUTO) 73.1 % (42-75); PLATELET COUNT 202 X10'3 (140-440); RED BLOOD COUNT 2.98 X10'6 (4.70-6.10); WHITE BLOOD COUNT 6.2 X10'3 (4.5-11.0)
[2024-02-03 07:41] LABS: ALANINE AMINOTRANSFERASE 10 U/L (12-78); ALBUMIN/GLOBULIN RATIO 1.1 (1.1-1.5); ALKALINE PHOSPHATASE 41 IU/L (46-116); ANION GAP 8 (8-16); ASPARTATE AMINO TRANSFERASE 90 U/L (10-37); BILIRUBIN,TOTAL 0.7 MG/DL (0.1-1.0); BLOOD UREA NITROGEN 12 MG/DL (7-18); BUN/CREATININE RATIO 11.2 (10.0-20.0); C-REACTIVE PROTEIN 0.75 MG/DL (0.0-0.5); CALCIUM 8.6 MG/DL (8.5-10.1); CHLORIDE 106 MMOL/L (99-107); CREATININE 1.07 MG/DL (0.60-1.10); GLUCOSE 96 MG/DL (70-104); MAGNESIUM 1.8 MG/DL (1.5-2.4); POTASSIUM 3.6 MMOL/L (3.5-5.1); SODIUM 142 MMOL/L (135-145); TOTAL CARBON DIOXIDE 27.7 MMOL/L (24-32); TOTAL PROTEIN 5.8 G/DL (6.4-8.2); eCRCL 47 ML/MIN; eGFR 81 ML/MIN
[2024-02-03] MEDS ORDERED: bisacodyl 10mg suppository rectal RC PRN (10:40)
[2024-02-03] MEDS: magnesium hydroxide 30ml (MOM) UD suspension PO PRN (10:51)
[2024-02-04] VITALS (10 sets, daily range): BP systolic 121–145; BP diastolic 50–76; PULSE 82–93; RESP 10–18; TEMP 97.8–98.9; O2SAT 96–99
[2024-02-04 07:04] LABS: BASOPHILS % (AUTO) 0.3 % (0-1); EOSINOPHILS # (AUTO) 0.1 X10'3 (0-0.9); EOSINOPHILS % (AUTO) 0.9 % (0-6); HEMATOCRIT 30.5 % (42.0-52.0); HEMOGLOBIN 10.3 g/dl (14.0-17.9); LYMPHOCYTES # (AUTO) 0.8 X10'3 (1.1-4.8); LYMPHOCYTES % (AUTO) 11.2 % (21-51); MEAN CORPUSCULAR HEMOGLOBIN 30.1 PG (27.0-31.0); MEAN CORPUSCULAR HGB CONC 33.8 g/dL (33.0-36.5); MEAN PLATELET VOLUME 8.9 FL (7.4-10.4); MONOCYTES # (AUTO) 0.8 X10'3 (0-0.9); MONOCYTES % (AUTO) 10.1 % (2-12); NEUTROPHILS # (AUTO) 5.8 X10'3 (1.8-7.7); NEUTROPHILS % (AUTO) 77.5 % (42-75); PLATELET COUNT 224 X10'3 (140-440); RED BLOOD COUNT 3.42 X10'6 (4.70-6.10); RED CELL DISTRIBUTION WIDTH 13.9 % (11.5-14.5); WHITE BLOOD COUNT 7.5 X10'3 (4.5-11.0)
[2024-02-04 07:13] LABS: ANION GAP 6 (8-16); BLOOD UREA NITROGEN 10 MG/DL (7-18); BUN/CREATININE RATIO 9.7 (10.0-20.0); CHLORIDE 105 MMOL/L (99-107); CREATININE 1.03 MG/DL (0.60-1.10); GLUCOSE 102 MG/DL (70-104); POTASSIUM 3.8 MMOL/L (3.5-5.1); SODIUM 141 MMOL/L (135-145); TOTAL CARBON DIOXIDE 29.9 MMOL/L (24-32)
[2024-02-04 07:14] LABS: ALANINE AMINOTRANSFERASE 11 U/L (12-78); ALBUMIN 3.2 G/DL (3.4-5.0); ALKALINE PHOSPHATASE 50 IU/L (46-116); ASPARTATE AMINO TRANSFERASE 72 U/L (10-37); BILIRUBIN,TOTAL 0.7 MG/DL (0.1-1.0); CALCIUM 8.9 MG/DL (8.5-10.1); MAGNESIUM 2.1 MG/DL (1.5-2.4); TOTAL PROTEIN 6.3 G/DL (6.4-8.2); eCRCL 49 ML/MIN; eGFR 85 ML/MIN
[2024-02-04] MEDS: LIDOcaine 5% patch TP SCH (10:00)
[2024-02-05] VITALS (10 sets, daily range): BP systolic 92–150; BP diastolic 58–82; PULSE 79–172; RESP 13–78; TEMP 97.7–99.2; O2SAT 95–100
[2024-02-05 06:19] LABS: EOSINOPHILS # (AUTO) 0.1 X10'3 (0-0.9); HEMOGLOBIN 11.2 g/dl (14.0-17.9); LYMPHOCYTES # (AUTO) 0.8 X10'3 (1.1-4.8); MEAN PLATELET VOLUME 9.8 FL (7.4-10.4); MONOCYTES # (AUTO) 0.9 X10'3 (0-0.9)
[2024-02-05 06:21] LABS: BASOPHILS % (AUTO) 0.3 % (0-1); EOSINOPHILS % (AUTO) 1.7 % (0-6); HEMATOCRIT 32.7 % (42.0-52.0); LYMPHOCYTES % (AUTO) 9.6 % (21-51); MEAN CORPUSCULAR HEMOGLOBIN 30.7 PG (27.0-31.0); MEAN CORPUSCULAR HGB CONC 34.3 g/dL (33.0-36.5); MEAN CORPUSCULAR VOLUME 89.5 FL (78-98); MONOCYTES % (AUTO) 10.5 % (2-12); NEUTROPHILS # (AUTO) 6.3 X10'3 (1.8-7.7); NEUTROPHILS % (AUTO) 77.9 % (42-75); PLATELET COUNT 199 X10'3 (140-440); RED BLOOD COUNT 3.65 X10'6 (4.70-6.10); RED CELL DISTRIBUTION WIDTH 13.6 % (11.5-14.5); WHITE BLOOD COUNT 8.1 X10'3 (4.5-11.0)
[2024-02-05 06:51] LABS: ALANINE AMINOTRANSFERASE 11 U/L (12-78); ALBUMIN 3.1 G/DL (3.4-5.0); ALBUMIN/GLOBULIN RATIO 0.9 (1.1-1.5); ALKALINE PHOSPHATASE 55 IU/L (46-116); ANION GAP 6 (8-16); ASPARTATE AMINO TRANSFERASE 55 U/L (10-37); BILIRUBIN,TOTAL 0.7 MG/DL (0.1-1.0); BLOOD UREA NITROGEN 9 MG/DL (7-18); BUN/CREATININE RATIO 9.9 (10.0-20.0); CALCIUM 8.7 MG/DL (8.5-10.1); CHLORIDE 107 MMOL/L (99-107); CREATININE 0.91 MG/DL (0.60-1.10); GLUCOSE 116 MG/DL (70-104); MAGNESIUM 2.3 MG/DL (1.5-2.4); SODIUM 140 MMOL/L (135-145); TOTAL CARBON DIOXIDE 27.1 MMOL/L (24-32); TOTAL PROTEIN 6.5 G/DL (6.4-8.2); eCRCL 55 ML/MIN; eGFR > 90 ML/MIN
[2024-02-05] MEDS: pantoprazole 40mg Tablet.DR PO SCH (08:51)
[2024-02-05] MEDS: metoprolol tartrate 1mg/ml inj IV PRN (10:49)
[2024-02-05] MEDS: normal saline 1000ml 1,000 ML IV SCH (16:00)
[2024-02-05] MEDS: tamsulosin 0.4mg capsule PO SCH (19:16)
[2024-02-06] VITALS (9 sets, daily range): BP systolic 113–149; BP diastolic 68–82; PULSE 68–98; RESP 12–21; TEMP 98–99; O2SAT 92–99
[2024-02-06 07:03] LABS: BASOPHILS % (AUTO) 0.5 % (0-1); EOSINOPHILS # (AUTO) 0.2 X10'3 (0-0.9); EOSINOPHILS % (AUTO) 3.5 % (0-6); HEMATOCRIT 30.6 % (42.0-52.0); HEMOGLOBIN 10.3 g/dl (14.0-17.9); LYMPHOCYTES # (AUTO) 0.8 X10'3 (1.1-4.8); LYMPHOCYTES % (AUTO) 11.9 % (21-51); MEAN CORPUSCULAR HEMOGLOBIN 30.2 PG (27.0-31.0); MEAN CORPUSCULAR HGB CONC 33.7 g/dL (33.0-36.5); MEAN CORPUSCULAR VOLUME 89.7 FL (78-98); MEAN PLATELET VOLUME 8.3 FL (7.4-10.4); MONOCYTES # (AUTO) 0.8 X10'3 (0-0.9); MONOCYTES % (AUTO) 12.4 % (2-12); NEUTROPHILS # (AUTO) 4.9 X10'3 (1.8-7.7); NEUTROPHILS % (AUTO) 71.7 % (42-75); PLATELET COUNT 231 X10'3 (140-440); RED BLOOD COUNT 3.41 X10'6 (4.70-6.10); RED CELL DISTRIBUTION WIDTH 13.9 % (11.5-14.5); WHITE BLOOD COUNT 6.8 X10'3 (4.5-11.0)
[2024-02-06 07:24] LABS: ALANINE AMINOTRANSFERASE 11 U/L (12-78); ALKALINE PHOSPHATASE 49 IU/L (46-116); ANION GAP 5 (8-16); ASPARTATE AMINO TRANSFERASE 38 U/L (10-37); BILIRUBIN,TOTAL 0.8 MG/DL (0.1-1.0); BLOOD UREA NITROGEN 12 MG/DL (7-18); BUN/CREATININE RATIO 11.3 (10.0-20.0); CALCIUM 8.7 MG/DL (8.5-10.1); CHLORIDE 109 MMOL/L (99-107); CREATININE 1.06 MG/DL (0.60-1.10); GLUCOSE 83 MG/DL (70-104); POTASSIUM 4.1 MMOL/L (3.5-5.1); SODIUM 143 MMOL/L (135-145); TOTAL CARBON DIOXIDE 28.8 MMOL/L (24-32); TOTAL PROTEIN 6.1 G/DL (6.4-8.2); eCRCL 47 ML/MIN; eGFR 82 ML/MIN
[2024-02-06] MEDS: diphenhydrAMINE 25mg capsule PO PRN (20:32)
[2024-02-06] MEDS: bisacodyl 5mg tablet.DR PO PRN (20:32)
[2024-02-07] VITALS (9 sets, daily range): BP systolic 12–155; BP diastolic 66–86; PULSE 78–87; RESP 12–18; TEMP 92.9–98.6; O2SAT 97–99
[2024-02-07] MEDS: bisacodyl 10mg suppository rectal RC ONE (21:32)
[2024-02-07] MEDS: lisinopril 5mg tablet PO SCH (21:38)
[2024-02-08 02:00] VITALS: BP 165/83; PULSE 84; RESP 12; TEMP 97; O2SAT 97
[2024-02-08 07:00] VITALS: BP 153/89; PULSE 92; RESP 16; TEMP 98.6; O2SAT 97
[2024-02-08 08:00] VITALS: RESP 18; O2SAT 98
[2024-02-08 10:27] VITALS: PULSE 85; RESP 14; O2SAT 99
[2024-02-08 11:00] VITALS: BP 127/50; PULSE 82; RESP 16; TEMP 97.5; O2SAT 99
[2024-02-08] MEDS ORDERED: PANT40TA54 PO ×2 (12:41→15:36)
[2024-02-08] MEDS ORDERED: FURO-150 PO ×2 (12:41→15:36)
[2024-02-08] MEDS ORDERED: LISI5TAB22 PO ×2 (12:41→15:36)
[2024-02-08] MEDS ORDERED: APIX5TAB3 PO ×2 (12:41→15:36)
[2024-02-08] MEDS ORDERED: TRAM50TA2 PO (12:41)
[2024-02-08] MEDS ORDERED: ATOR20TA66 PO ×2 (12:41→15:36)
[2024-02-08 14:02] LABS: % FREE PSA 11.8 % (.); PROSTATE SPECIFIC AG, SERUM 15.9 ng/mL (0.0-4.0); PSA, FREE 1.88 ng/mL
[2024-02-08 15:00] VITALS: BP 151/77; PULSE 84; RESP 13; TEMP 97.3; O2SAT 97
[2024-02-08] MEDS ORDERED: FLO0.4C PO (23:02)
== END 2024-02-08 16:57 | disposition home or self-care (01) | DRG 720 ==
LOC: ER 12:20 → ED HOLD 16:41 → PCU 3S 22:17
PROVIDERS: ADMIT Nurse Practitioner Family; ATTEND Nurse Practitioner Family
PROC: 4A00X4Z Measurement of Central Nervous Electrical Activity, External Approach (ICD-10-PCS; principal; 2024-02-02)
DX: A41.9 Sepsis, unspecified organism (principal); G93.41 Metabolic encephalopathy; N17.9 Acute kidney failure, unspecified; J18.9 Pneumonia, unspecified organism; G20.A1 Parkinson's disease without dyskinesia, without mention of fluctuations; T83.83XA Hemorrhage due to genitourinary prosthetic devices, implants and grafts, initial encounter; R56.9 Unspecified convulsions; I48.91 Unspecified atrial fibrillation; I34.81 Nonrheumatic mitral (valve) annulus calcification; Z20.822 Contact with and (suspected) exposure to COVID-19; I10 Essential (primary) hypertension; D64.9 Anemia, unspecified; J32.0 Chronic maxillary sinusitis; N40.0 Benign prostatic hyperplasia without lower urinary tract symptoms; Y84.8 Other medical procedures as the cause of abnormal reaction of the patient, or of later complication, without mention of misadventure at the time of the procedure; Y92.89 Other specified places as the place of occurrence of the external cause; Z86.73 Personal history of transient ischemic attack (TIA), and cerebral infarction without residual deficits
CPT/HCPCS: 36415; 70450; 70551; 71045; 71100; 71250; 72125; 74018; 74176; 80048; 80053; 80061; 80305; 81001; 82140; 82948; 83036; 83605; 83735; 84145; 84153; 84154; 85025; 85610; 85730; 86140; 87040; 87081; 87811; 92508; 92616; 93005; 93308; 93880; 94760; 95816; 96365; 97110; 97116; 97162; 97530; 97535; 99285; A4565; A5200; A6213; A6223; A6258; A6449; A6590; C1758; G0378; J0456; J0696; J1815; J2270; J2470; J2543; J3490; J7030; J7070; J7120; J7121; Q0163; Q9967

== ENCOUNTER 2024-11-04 20:22 | Inpatient (IN) | payer MEDICAID ==
[~2024-11-04] VITALS: Ht 160 cm; Wt 65.0 kg
[~2024-11-04 20:22] MED LIST changes: +APIX5TAB3 PO; +ATOR20TA66 PO; +CARB1CAP3 PO; -CARB1TAB36 PO; +CHOL500050 PO; +DOCU-391 PO; -DOCU100C40 PO; +GLYC1TAB23 PO; +LISI5TAB22 PO; +PANT40TA54 PO; +ROPI0.5T37 PO; +TAMS-55 PO; +TRAM50TA2 PO
--- NOTE | 2024-11-04 21:39 | Physician Documentation ---
History of Present Illness ~ General Chief Complaint: Abnormal Lab(s) Stated Complaint: FEVER Time Seen by MD: 21:31 Primary Medical Doctor: VIOLETA Cornejo. Neurologist: Dr. Jenny Newman History of Present Illness Initial Comments Patient presents to the emergency room sent by living facility for concerns of fever and abnormal labs. Patient denies any pain. States he feels fine. Denies abdominal pain. He states he does have some pain associated with his decubitus ulcer. Labs sent shows urinary tract infection Medication Reconciliation Allergies: Coded Allergies: No Known Allergies (Unverified , 11/04/24) Scheduled Apixaban (Eliquis), 5 MG PO BID Aspirin (Aspirin EC), 1 TAB PO DAILY, (Reported) Atorvastatin Calcium (Atorvastatin Calcium), 20 MG PO HS Carbidopa/Levodopa (Rytary ER 36.25 mg-145 mg Cap), 1 CAP PO BID, (Reported) Cholecalciferol (Vitamin D3) (Vitamin D3), 1 CAP PO DAILY, (Reported) Furosemide 40 MG (Lasix), 1 TAB PO DAILY, (Reported) Glycopyrrolate (ROBINUL tablet), 1 TAB PO Q12H, (Reported) Lisinopril (Lisinopril), 10 MG PO DAILY Losartan Potassium (Losartan Potassium), 1 TAB PO DAILY, (Reported) Pantoprazole Sodium (Pantoprazole Sodium), 40 MG PO BKF Ropinirole Hcl (Ropinirole Hcl), 1 TAB PO BID, (Reported) Spironolactone (Spironolactone), 1 TAB PO DAILY, (Reported) Tamsulosin Hcl* (Flomax*), 1 CAP PO DAILY, (Reported) Scheduled PRN Docusate Sodium (Docusate Sodium), 1 CAP PO TID PRN for constipation, (Reported) Tramadol Hcl (Tramadol Hcl), 50 MG PO DAILY PRN for pain Past Medical History Past Medical History: CVA/TIA/Stroke, Parkinson's Disease, Hypertension Past Surgical History: noncontributory Patient History: FH: heart disease MOTHER, FH: hypertension FATHER MOTHER, Alcohol Use: None Drug Use: none Lives with: Family Lives In: Home Occupation: disabled Review of Systems ROS All review of systems negative except as per HPI Physical Exam Physical Exam Vital Signs: Temperature: 99.0, Source: Oral, Heart Rate: 93, Respiratory Rate: 16, BP: 126/79, Pulse Oximetry: 97, Weight: 65.000 Oxygen Flow Rate: 0 Physical Exam General: Patient is awake, alert, oriented x4 in no acute distress Head: Normocephalic and atraumatic. Eyes: Conjunctival normal. EOMI. PERRL. ENT: Mucous membranes moist. Neck: Supple, trachea is midline. Chest: Clear to auscultation bilaterally without rales, rhonchi, or wheezes. There is no accessory muscle use or retractions. Cardiac: RRR without murmurs, gallops, or rubs. Abd: Soft, nondistended, nontender, with normoactive bowel sounds. No guarding, rebound, or rigidity. : Subcentimeter decubitus ulcer noted at sacrum without surrounding cellulitis or purulent discharge Progress Results/Orders Results/Orders Orders - CHOLO PINA MD Culture Blood (11/04/24 21:32) Chest,Single View (11/04/24 22:10) Ct Abdomen Pelvis (11/04/24 22:30) Cult Urine + [address] Ct (11/04/24 23:21) Page Hospitalist (11/05/24 01:02) Fill Out Med Reconciliation (11/05/24 01:02) Completed Orders - CHOLO PINA MD Electrocardiogram (11/04/24 21:32) Cbc/Diff (11/04/24 21:32) MG (11/04/24 21:32) Chest,Single View (11/04/24 22:10) Procalcitonin (11/04/24 21:32) BMP (11/04/24 21:32) Lacticsepsis (11/04/24 21:32) Ceftriaxone/E0z-Tsbopfzs 1gm (Rocephin 1 (11/04/24 22:30) Ct Abdomen Pelvis (11/04/24 22:30) Iohexol 300mg/Ml 100ml Inj. (Omnipaque-3 (11/04/24 22:36) Acetaminophen 1,000mg/100ml Iv (Ofirmev (11/04/24 23:05) Ua W/Microscopic, Cult If Ind (11/04/24 23:01) Medications Received in ER Medications (Trade) Dose Ordered Sig/Arnoldo Route PRN Reason Start Time Stop Time Status Last Admin Dose Admin Ceftriaxone Sodium 50 ml @ 100 mls/hr ONCE ONCE IV 11/04/24 22:30 11/04/24 22:59 DC 11/04/24 23:00 100 MLS/HR Acetaminophen 100 ml @ 400 mls/hr ONCE ONCE IV 11/04/24 23:05 11/04/24 23:19 DC 11/04/24 23:29 400 MLS/HR Vital Signs 11/04/24 11/04/24 11/04/24 11/05/24 20:28 20:30 22:12 00:38 Temp 99.0 99.0 Pulse 94 93 99 Resp 14 16 19 B/P (MAP) 130/82 126/79 (95) 138/78 (98) Pulse Ox 97 97 94 O2 Flow Rate 0 0 0 Laboratory Tests Test 11/04/24 21:43 11/04/24 23:01 White Blood Count 8.4 Red Blood Count 3.74 L Hemoglobin 10.8 L Hematocrit 31.2 L Mean Corpuscular Volume 83.4 Mean Corpuscular Hemoglobin 28.8 Mean Corpuscular Hemoglobin Concent 34.5 Red Cell Distribution Width 15.3 H Platelet Count 220 Mean Platelet Volume 7.1 L Neutrophils (%) (Auto) 72.6 Lymphocytes (%) (Auto) 8.8 L Monocytes (%) (Auto) 18.0 H Eosinophils (%) (Auto) 0.4 Basophils (%) (Auto) 0.2 Neutrophils # (Auto) 6.1 Lymphocytes # (Auto) 0.7 L Monocytes # (Auto) 1.5 H Eosinophils # (Auto) 0.0 Basophils # (Auto) 0.0 CBC Comment Sodium Level 137 Potassium Level 4.3 Chloride Level 101 Carbon Dioxide Level 29.4 Anion Gap 7 L Blood Urea Nitrogen 33 H Creatinine 1.56 H Estimated GFR/1.73 m2 52 BUN/Creatinine Ratio 21.2 H Glucose Level 128 H Lactic Acid Level 1.3 Calcium Level 9.5 Magnesium Level 2.3 Albumin 3.3 L Procalcitonin 0.65 H Chemistry Comments Urine Specimen Description Cln catch midstream Urine Color Yellow Urine Clarity Cloudy Urine pH 6.0 Urine Specific [place] 1.010 Urine Protein 30 H Urine Glucose (UA) Negative Urine Ketones Negative Urine Occult Blood Moderate H Urine Nitrite Positive H Urine Bilirubin Negative Urine Urobilinogen 1.0 Urine Leukocyte Esterase Large H Urine RBC 3-10 Urine WBC 50-100 H Urine WBC Clumps Few Urine Squamous Epithelial Cells None seen Urine Bacteria 3+ Urine Culture Indicated Indicated Volume Urine Centrifuged 10 ml Urine Comment Microbiology Date/Time Source Procedure Growth Status 11/04/24 23:21 Urine Clean Catch Midstream Urine Culture - Preliminary Culture received. Resulted 11/04/24 22:09 Blood Arm Right Blood Culture - Preliminary NEGATIVE (LESS THAN 24 HOURS) Resulted Medical Decision Making Findings Given patient's positive urinary tract infection along with elevated procalcitonin fevers I do believe patient has not early sepsis and requires admission given his age and risk factors Differential Diagnosis Anemia, sepsis, electrolyte disturbances, dehydration, acute renal failure Departure Admitted to Inpatient Unit: yes, to hospitalist Impression: Primary Impression: UTI (urinary tract infection) Additional Impression: Suspected early sepsis Condition: Guarded Referrals: NO PRIMARY CARE PROVIDER (PCP) Signature Scribe Signature: No scribe Attestation: The note accurately reflects work and decisions made by me.Cholo Pina MD 11/05/24 01:26 CHOLO PINA MD Nov 04, 2024 21:39
[2024-11-04 21:50] LABS: BASOPHILS % (AUTO) 0.2 % (0-1); EOSINOPHILS % (AUTO) 0.4 % (0-6); HEMATOCRIT 31.2 % (42.0-52.0); HEMOGLOBIN 10.8 g/dl (14.0-17.9); LYMPHOCYTES # (AUTO) 0.7 X10'3 (1.1-4.8); LYMPHOCYTES % (AUTO) 8.8 % (21-51); MEAN CORPUSCULAR HEMOGLOBIN 28.8 PG (27.0-31.0); MEAN CORPUSCULAR HGB CONC 34.5 g/dL (33.0-36.5); MEAN CORPUSCULAR VOLUME 83.4 FL (78-98); MEAN PLATELET VOLUME 7.1 FL (7.4-10.4); MONOCYTES # (AUTO) 1.5 X10'3 (0-0.9); NEUTROPHILS # (AUTO) 6.1 X10'3 (1.8-7.7); NEUTROPHILS % (AUTO) 72.6 % (42-75); PLATELET COUNT 220 X10'3 (140-440); RED BLOOD COUNT 3.74 X10'6 (4.70-6.10); RED CELL DISTRIBUTION WIDTH 15.3 % (11.5-14.5); WHITE BLOOD COUNT 8.4 X10'3 (4.5-11.0)
--- NOTE | 2024-11-04 21:53 | ELECTROCARDIOGRAPH REPORT ---
[facility] Test Date: 2024-11-04 Test Time: 21:51:07 Pat Name: DORCAS CHOU Department: [facility]- Patient ID: [facility]-[id number] Room: [place] [id number] Gender: M Rn Paralegal: : 1945 Requested By: ADAM PINA Order Number: [id number] Reading MD: Dr. Alex Trevizo Measurements Intervals [place] Rate: 94 P: 0 LA: 0 QRS: -9 QRSD: 82 T: 22 QT: 333 QTc: 417 Interpretive Statements Accelerated junctional rhythm Abnormal R-wave progression, early transition Artifact in lead(s) I,III,aVR,aVL,V1,V2 Electronically Signed On 11-08-2024 18:36:[address] Alex Trevizo Please click the below link to view image of tracing.
[2024-11-04 22:03] LABS: ALBUMIN 3.3 G/DL (3.4-5.0); ANION GAP 7 (8-16); BLOOD UREA NITROGEN 33 MG/DL (7-18); BUN/CREATININE RATIO 21.2 (10.0-20.0); CALCIUM 9.5 MG/DL (8.5-10.1); CHLORIDE 101 MMOL/L (99-107); CREATININE 1.56 MG/DL (0.60-1.10); GLUCOSE 128 MG/DL (70-104); MAGNESIUM 2.3 MG/DL (1.5-2.4); POTASSIUM 4.3 MMOL/L (3.5-5.1); SODIUM 137 MMOL/L (135-145); TOTAL CARBON DIOXIDE 29.4 MMOL/L (24-32); eCRCL 31 ML/MIN; eGFR 52 ML/MIN
[2024-11-04] MEDS ORDERED: iohexol 300mg/ml 100ml inj. ONE (22:36)
--- NOTE | 2024-11-04 22:50 | RADIOLOGY REPORT ---
CHEST RADIOGRAPH Indication: SEPSIS Technique: Single frontal view of the chest was obtained COMPARISON: DI CHEST,SINGLE VIEW on DOS: 08/12/24, DI CHEST,SINGLE VIEW on DOS: 02/01/24, DI CHEST,SING LE VIEW on DOS: 01/23/24, DI CHEST,SINGLE VIEW on DOS: 12/10/22 FINDINGS: Lines and Tubes: None Lungs: Clear Pleura: No effusion. No pneumothorax. Cardiomediastinal contours: Unremarkable Bones: Unremarkable IMPRESSION: 1. No acute disease.
[2024-11-04] MEDS: CefTRIAXone/D5W-Rocephin 1gm 50 ML IV ONE (23:00)
[2024-11-04 23:09] LABS: BILIRUBIN,URINE NEGATIVE (Neg); CLARITY,URINE CLOUDY (Clear); COLOR,URINE YELLOW (Yellow); GLUCOSE, URINE NEGATIVE (Neg); KETONES,URINE NEGATIVE (Neg); LEUKOCYTE ESTERASE ,URINE LARGE (Neg); NITRITES, URINE POSITIVE (Neg); OCCULT BLOOD,URINE MODERATE (Neg); PROTEIN,URINE 30 mg/dl (Neg)
[2024-11-04 23:10] LABS: UA COLLECTION TYPE CLN CATCH MIDSTREAM
[2024-11-04 23:20] LABS: BACTERIA,URINE 3+ /HPF (Neg); SQUAMOUS EPITHELIAL CELL,UR NONE SEEN /LPF (FEW); WBC,URINE 50-100 /HPF (0-4)
[2024-11-04 23:21] LABS: WBC CLUMPS,URINE FEW /HPF (NEGATIVE)
[2024-11-04] MEDS: acetaminophen 1,000mg/100ml IV 100 ML IV ONE (23:29)
[2024-11-05] VITALS (9 sets, daily range): BP systolic 95–141; BP diastolic 44–77; PULSE 98–110; RESP 14–20; TEMP 97.7–101.1; O2SAT 93–97
--- NOTE | 2024-11-05 00:29 | RADIOLOGY REPORT ---
CT OF THE ABDOMEN AND PELVIS WITH CONTRAST. HISTORY: suspected infection COMPARISON: CT CT CHEST ABDOMEN PELVIS on DOS: 02/01/24 TECHNIQUE: Helical axial CT images of the abdomen and pelvis were obtained with intravenous contrast. Multiplanar reformats. One or more of the following radiation dose reduction techniques were used fo r this examination: automated exposure control, adjustment of the mA and/or kV according to patient s ize, use of iterative reconstruction technique. FINDINGS: Dependent atelectasis/scarring in the imaged lung bases. Liver: No discrete hepatic lesions as visualized. Gallbladder and biliary system: Gallbladder is contracted. No sizable, radiopaque cholelithiasis or b iliary ductal dilatation. Pancreas: Negative. Spleen: Negative. Adrenal Glands: Negative. Kidneys and collecting system: Mild left hydroureteronephrosis. Mild left perinephric fat stranding. Left ureteral enhancement is also noted. Retroperitoneum: Aortoiliac atherosclerotic calcifications. No evidence of abdominal aortic aneurysm . Lymph nodes: No discretely enlarged lymph nodes identified. Bowel: No evidence of small-bowel obstruction. Moderate to large volume stool throughout the colon an d rectum may indicate constipation. No free intraperitoneal air or fluid identified. Pelvis: Mild symmetrical thickening of the urinary bladder. The prostate is markedly enlarged and pr otrudes into the base of the bladder. Osseous structures: No destructive osseous lesions identified. IMPRESSION: Mild left hydroureteronephrosis and perinephric inflammation. No sizable, obstructing urinary tract c alculi identified. UTI/pyelonephritis is included in the differential diagnosis. This may also be due to chronic bladder outlet obstruction given the severe prostate enlargement. Prostate malignancy not excluded. Recommend further workup as clinically indicated. Other findings as above.
[2024-11-05] MEDS ORDERED: magnesium hydroxide 30ml (MOM) UD suspension PO PRN (01:15)
[2024-11-05] MEDS ORDERED: magnesium sulf-water 4G/100mL 100 ML IV PRN (01:15)
[2024-11-05] MEDS ORDERED: magnesium sulf-water 2g/50mL 50 ML IV PRN (01:15)
[2024-11-05] MEDS ORDERED: potassium Cl 20 mEq SR tablet PO PRN ×2 (01:15)
[2024-11-05] MEDS ORDERED: potassium Cl 40MEQ/1/2NS 520ml 520 ML IV PRN (01:15)
[2024-11-05] MEDS ORDERED: ondansetron/PF 4mg/2ml inj IV PRN (01:15)
[2024-11-05] MEDS ORDERED: magnesium Cl slow-release 64mg tablet PO PRN (01:15)
[2024-11-05] MEDS: normal saline 500ml IV soln 500 ML IV ONE (01:45)
--- NOTE | 2024-11-05 01:53 | HISTORY AND PHYSICAL-Residence ---
History & Physical Providers to Resident Creating Document: GHASSAN ZHANG, RES ~ History of Present Illness Primary Medical Doctor: VIOLETA Cornejo. Neurologist: Dr. Jenny Newman Reason for Admit\Complaint: Weakness UTI History of Present Illness 79 year with history of parkinsonism, hypertension, CVA, AFib [facility] concerning for abnormal lab and fever. Patient is poor historian and information gathered from medical chart staff and medical report. As rehab facility medical staff patient complain of muscle ache weakness and fever, temperature 102.2, and UA positive. Patient he is awake and alert but weak and denied any abdominal/flank pain, however reported urinary emergency and dribbling. Denied any diarrhea, constipation or any other new symptoms. Allergies: Coded Allergies: No Known Allergies (Unverified , 11/04/24) Home Medications Home Medications Active Pantoprazole Sodium 40 Mg Tablet.dr 40 Mg PO BKF 30 Days Lisinopril 5 Mg Tablet 10 Mg PO DAILY 30 Days Atorvastatin Calcium 20 Mg Tablet 20 Mg PO HS 30 Days Eliquis (Apixaban) 5 Mg Tablet 5 Mg PO BID 30 Days Tramadol Hcl (Tramadol HCl) 50 Mg Tablet 50 Mg PO DAILY PRN 30 Days Reported Lasix (Furosemide) 40 Mg Tablet 1 Tab PO DAILY 30 Days ROBINUL tablet (Glycopyrrolate) 1 Mg Tablet 1 Tab PO Q12H 30 Days Flomax* (Tamsulosin HCl) 0.4 Mg Cap.sr.24h 1 Cap PO DAILY 30 Days Rytary ER 36.25 mg-145 mg Cap (Carbidopa/Levodopa) 36.25 Mg-145 Mg Capsule.er 1 Cap PO BID Vitamin D3 (Cholecalciferol (Vitamin D3)) 125 Mcg (5000 Unit) Capsule 1 Cap PO DAILY Ropinirole Hcl 0.5 Mg Tablet 1 Tab PO BID Docusate Sodium 100 Mg Capsule 1 Cap PO TID PRN Aspirin EC (Aspirin) 81 Mg Tablet.dr 1 Tab PO DAILY Losartan Potassium 50 Mg Tablet 1 Tab PO DAILY Spironolactone 25 Mg Tablet 1 Tab PO DAILY Past Medical History Past Medical History Atrial fibrillation Anemia Metabolic encephalopathy Parkinsonism Decubitus ulcer Hypertension CVA Family History Family History: FH: heart disease MOTHER, FH: hypertension FATHER MOTHER, Past Social History Smoking: Non-Smoker Alcohol Use: None Drug Use: None Lives with: Family Lives In: Home Occupation: disabled ROS ROS The history of present illness included a review of system, which yielded relevant positives and negatives Exam Vitals: Vital Signs Date Time Temp Pulse Resp B/P (MAP) Pulse Ox O2 Delivery O2 Flow Rate FiO2 11/05/24 00:38 99.0 99 19 138/78 (98) 94 0 General: General: Awake and Alert, no acute distress. HEENT: Conjunctiva pink, Sclera clear, Mucus Membranes moist. Neck: Supple without masses and tenderness. Resp: Lungs clear to auscultation bilaterally. Heart: irregular Rate and rhythm, normal S1 and S2 Abdomen: Soft and non tender no organomegaly Extremities: No cyanosis,clubbing or edema. Decubitus ulcer stage II Skin: Warm and Dry. Neurological: Speech is not clear very weak voice, alert, and oriented x 4, no gross neurological deficits Diagnostic Data Last Recorded Lab Results: 11/04/24214211/04/242142 Advance Care Planning Advanced Care plannin - 30 Minutes Additional Plan 79 years old male with history of hypertension, parkinsonism, atrial fibrillation brought to the ED from [facility] rehab facility with concerning of UTI and weakness Generalized weakness UTI, hydronephrosis, BPH No leukocytosis, mildly elevated procalcitonin UA positive, urine and blood culture culture sent Fever reported in rehab facility CT: Mild left hydroureteronephrosis and perinephric inflammation. No sizable, obstructing urinary tract calculi identified. IV fluid 500 cc started we will continue 50 mL/hour started Ceftriaxone started, we follow blood culture urine culture Normocytic hypochromic anemia Stable from last visit, Iron panel ordered Acute on chronic kidney failure BUN 33, creatinine 1.56 kidney function getting worse compared to two months ago Secondary to dehydration IV fluids started we will continue monitoring Other comorbidities AFib rate control, hypertension We will continue home medication Code Status: full DVT prophylaxis: Eliquis Analgesia/sedation: Tylenol Line/tube: Peripheral GI prophylaxis: Protonix Nutrition: Regular PT: Yes Prognosis: Guarded Disposition: Continue monitoring patient in ortho floor with telemetry, follow- up blood culture and urine culture Ghassan Zhang MD Internal Medicine Resident Addendum I personally reviewed the chart, labs and imaging and reviewed the patient with the team. I agree with the assessment and plan as documented by the resident. Patient was seen through remote audio-visual assessment through HIPAA compliance setup. Date of Service: Nov 05, 2024 Billing Provider: JOÃO LOBO MD,GHASSAN, RES Nov 05, 2024 01:53 JOÃO LOBO MD Nov 05, 2024 03:07
[2024-11-05 03:18] LABS: MAGNESIUM 2.1 MG/DL (1.5-2.4); POTASSIUM 4.4 MMOL/L (3.5-5.1)
[2024-11-05] MEDS: normal saline 1000ml 1,000 ML IV SCH (03:32)
[2024-11-05] MEDS: acetaminophen 325mg tablet PO PRN (03:45)
[2024-11-05] MEDS: tamsulosin 0.4mg capsule PO SCH (03:45)
[2024-11-05] MEDS ORDERED: POLY119P2 PO (05:14)
[2024-11-05] MEDS ORDERED: BISA10SU60 RC (05:14)
[2024-11-05] MEDS ORDERED: SENN-360 PO (05:14)
[2024-11-05] MEDS ORDERED: ACET-890 PO (05:14)
[2024-11-05] MEDS ORDERED: MIRT-142 PO (05:14)
[2024-11-05] MEDS: K and/or MAG REPLACEMENT MC SCH (07:38)
[2024-11-05] MEDS: docusate sod 100mg capsule PO SCH (08:26)
[2024-11-05] MEDS: CefTRIAXone/D5W-Rocephin 1gm 50 ML IV SCH (08:26)
[2024-11-05] MEDS: lactobacillus rhamnosus 10,000 MMU CELLS/CAPSULE PO SCH (08:26)
[2024-11-05 09:03] LABS: C-REACTIVE PROTEIN 14.45 MG/DL (0.0-0.5)
[2024-11-06] VITALS (8 sets, daily range): BP systolic 109–155; BP diastolic 58–91; PULSE 89–115; RESP 15–22; TEMP 97.9–101.9; O2SAT 94–98
[2024-11-06 06:58] LABS: BASOPHILS % (AUTO) 0.3 % (0-1); EOSINOPHILS % (AUTO) 0.7 % (0-6); HEMATOCRIT 26.4 % (42.0-52.0); HEMOGLOBIN 9.3 g/dl (14.0-17.9); LYMPHOCYTES # (AUTO) 0.6 X10'3 (1.1-4.8); MEAN CORPUSCULAR HEMOGLOBIN 29.4 PG (27.0-31.0); MEAN CORPUSCULAR HGB CONC 35.4 g/dL (33.0-36.5); MEAN PLATELET VOLUME 7.7 FL (7.4-10.4); MONOCYTES # (AUTO) 1.5 X10'3 (0-0.9); MONOCYTES % (AUTO) 19.9 % (2-12); NEUTROPHILS # (AUTO) 5.2 X10'3 (1.8-7.7); NEUTROPHILS % (AUTO) 71.1 % (42-75); PLATELET COUNT 186 X10'3 (140-440); RED BLOOD COUNT 3.18 X10'6 (4.70-6.10); WHITE BLOOD COUNT 7.3 X10'3 (4.5-11.0)
[2024-11-06 07:07] LABS: ALANINE AMINOTRANSFERASE 33 U/L (12-78); ALBUMIN 2.7 G/DL (3.4-5.0); ALBUMIN/GLOBULIN RATIO 0.7 (1.1-1.5); ALKALINE PHOSPHATASE 75 IU/L (46-116); ANION GAP 10 (8-16); ASPARTATE AMINO TRANSFERASE 35 U/L (10-37); BILIRUBIN,TOTAL 0.8 MG/DL (0.1-1.0); BLOOD UREA NITROGEN 34 MG/DL (7-18); BUN/CREATININE RATIO 22.1 (10.0-20.0); CALCIUM 8.8 MG/DL (8.5-10.1); CHLORIDE 105 MMOL/L (99-107); CREATININE 1.54 MG/DL (0.60-1.10); GLUCOSE 105 MG/DL (70-104); MAGNESIUM 2.2 MG/DL (1.5-2.4); POTASSIUM 4.2 MMOL/L (3.5-5.1); SODIUM 141 MMOL/L (135-145); TOTAL CARBON DIOXIDE 25.7 MMOL/L (24-32); TOTAL PROTEIN 6.5 G/DL (6.4-8.2); eCRCL 32 ML/MIN; eGFR 53 ML/MIN
[2024-11-06 08:54] LABS: PLATELET ESTIMATE NORMAL; TOTAL CELLS COUNTED 100
[2024-11-06 13:17] LABS: % FREE PSA 13.8 % (.); PROSTATE SPECIFIC AG, SERUM 25.2 ng/mL (0.0-4.0); PSA, FREE 3.48 ng/mL
[2024-11-06] MEDS ORDERED: APIX5TAB3 PO (16:53)
[2024-11-06] MEDS ORDERED: ATOR20TA PO (16:53)
--- NOTE | 2024-11-06 19:27 | PROGRESS NOTE- Residence ---
Progress Note - Resident Providers to CC Resident Creating Document: JUAN C CHI, MIKE ~ Antibiotic Timeout Antibiotic Ordered?: Yes Subjective The patient has been evaluated at bedside. The patient is currently more oriented, answering questions, denies any pain, nausea, vomiting or fever sensation. Objective Vital Signs Date Time Temp Pulse Resp B/P (MAP) Pulse Ox O2 Delivery O2 Flow Rate FiO2 11/06/24 18:00 98.4 96 15 155/91 (112) 98 Room Air 11/05/24 00:38 0 Physical exam: General: Awake, alert, not confused, not agitated, not in acute distress, well cooperated during the physical. HEENT: Conjunctive are pink, sclerae clear, no icterus, pupil is equal in both sides, reactive to light, no ear discharge, no pharyngeal erythema or an edema. Neck: Supple, no JVD, no lymphadenopathy and thyromegaly. Chest: Equal air entry on both lungs, no additional sounds no rhonchi no wheezing at the moment, presence of scar in the level of the chest. Cardiovascular: S1-S2 regular sinus rhythm and, regular rate, no gallops, no rubs, no murmurs Abdomen: No visible peristalsis, Bowel sounds present on auscultation, soft, nontender, no guarding, no rigidity Extremities: No obvious deformities, no pitting edema bilaterally, capillary refill intact, peripheral pulsations are intact on both sides Central Nervous System: No focal neurological deficits, no motor or sensory weakness in all 4 extremities, could move all 4 extremities, 2+ deep tendon reflexes, negative Babinski. Musculoskeletal: No joint swelling, deformities, inflammations, and no scoliosis and back tenderness Skin: Warm and dry, presence of dermatitis stasis changes bilaterally. Result Diagram: 11/06/24 0611/06/24 06 Assessment Assessment 79 years old male with history of hypertension, parkinsonism, atrial fibrillation brought to the ED from [facility] rehab facility with concerning of UTI and weakness Plan Plan Sepsis: (sepsis criteria: Presence of source of infection, HR>90, temperature>100.4): Pyelonephritis: BPH: UA positive, urine and blood culture culture sent Fever reported in rehab facility CT: Mild left hydroureteronephrosis and perinephric inflammation. No sizable, obstructing urinary tract calculi identified. IV fluid 500 cc started we will continue 50 mL/hour started Ceftriaxone started, we follow blood culture urine culture. 11/06/2024: Blood culture showing Gram-negative rods. Continue ceftriaxone 1 g IV daily. Culturelle 8[address] mmu b.i.d. On NS at 50 mL/hour. Normocytic hypochromic anemia Stable from last visit, Iron panel ordered 11/06/2024. Follow-up iron studies. Acute on chronic kidney failure BUN 33, creatinine 1.56 kidney function getting worse compared to two months ago Secondary to dehydration Follow up urine lytes. On NS at 50 ml/hr Other comorbidities AFib rate control, hypertension Holding blood pressure medications due to soft blood pressures. Code Status: Full code DVT prophylaxis: Eliquis Analgesia/sedation: Tylenol Line/tube: PIV GI prophylaxis: Protonix Nutrition: Regular PT: Yes Prognosis: Guarded Disposition: Continue medical management. Juan C Aguila Internal Medicine Resident [facility] Date of Service: Nov 06, 2024 Billing Provider: PAOLO WAHL MD Common Visit Codes: [id number] INP/OBS CARE(HIGH) JUAN C CHI, RES Nov 06, 2024 19:27 PAOLO WAHL MD Nov 07, 2024 07:14
[2024-11-06 20:58] LABS: % IRON SATURATION 10 % (11-46); IRON 19 UG/DL (53-167); TOTAL IRON BINDING CAPACITY 196 UG/DL (259-388)
[2024-11-06] MEDS: mirtazapine 15mg tablet PO SCH (21:42)
[2024-11-06] MEDS: carbidopa/levodopa 50/200mg CR tablet PO SCH (21:49)
[2024-11-06] MEDS: apixaban 5mg tablet PO SCH (21:57)
[2024-11-06] MEDS: atorvastatin 20mg tablet PO SCH (22:05)
[2024-11-06] MEDS: glycopyrrolate 1mg tablet PO SCH (22:05)
[2024-11-06 23:14] LABS: TOTAL PROTEIN,URINE RANDOM 69.5 MG/DL
[2024-11-07] VITALS (7 sets, daily range): BP systolic 135–145; BP diastolic 75–87; PULSE 85–109; RESP 15–20; TEMP 97–98.9; O2SAT 90–98
[2024-11-07 04:43] LABS: EOSINOPHILS # (AUTO) 0.1 X10'3 (0-0.9); HEMOGLOBIN 10.1 g/dl (14.0-17.9); LYMPHOCYTES # (AUTO) 1.1 X10'3 (1.1-4.8); MEAN PLATELET VOLUME 7.4 FL (7.4-10.4); MONOCYTES # (AUTO) 1.4 X10'3 (0-0.9); MONOCYTES % (AUTO) 21.1 % (2-12)
[2024-11-07 04:47] LABS: BASOPHILS % (AUTO) 0.4 % (0-1); EOSINOPHILS % (AUTO) 1.5 % (0-6); HEMATOCRIT 28.9 % (42.0-52.0); LYMPHOCYTES % (AUTO) 15.9 % (21-51); MEAN CORPUSCULAR VOLUME 82.9 FL (78-98); NEUTROPHILS # (AUTO) 4.2 X10'3 (1.8-7.7); NEUTROPHILS % (AUTO) 61.1 % (42-75); PLATELET COUNT 238 X10'3 (140-440); RED BLOOD COUNT 3.48 X10'6 (4.70-6.10); RED CELL DISTRIBUTION WIDTH 14.9 % (11.5-14.5); WHITE BLOOD COUNT 6.8 X10'3 (4.5-11.0)
[2024-11-07 05:10] LABS: ALANINE AMINOTRANSFERASE 11 U/L (12-78); ALBUMIN 2.9 G/DL (3.4-5.0); ALBUMIN/GLOBULIN RATIO 0.7 (1.1-1.5); ALKALINE PHOSPHATASE 80 IU/L (46-116); ANION GAP 9 (8-16); ASPARTATE AMINO TRANSFERASE 32 U/L (10-37); BILIRUBIN,TOTAL 0.8 MG/DL (0.1-1.0); BLOOD UREA NITROGEN 24 MG/DL (7-18); BUN/CREATININE RATIO 21.2 (10.0-20.0); CALCIUM 9.5 MG/DL (8.5-10.1); CHLORIDE 107 MMOL/L (99-107); CREATININE 1.13 MG/DL (0.60-1.10); GLUCOSE 97 MG/DL (70-104); MAGNESIUM 2.3 MG/DL (1.5-2.4); POTASSIUM 4.1 MMOL/L (3.5-5.1); SODIUM 140 MMOL/L (135-145); TOTAL CARBON DIOXIDE 24.5 MMOL/L (24-32); TOTAL PROTEIN 7.2 G/DL (6.4-8.2); eCRCL 44 ML/MIN; eGFR 76 ML/MIN
[2024-11-07] MEDS: cholecalciferol (vitamin D3) 1,000 unit (25mcg) tablet PO SCH (07:01)
[2024-11-07] MEDS: MEROPENEM 1GM/NACL 50ML IVPB 50 ML IV SCH ×2 (10:21→21:14)
--- NOTE | 2024-11-07 17:38 | PROGRESS NOTE- Residence ---
Progress Note - Resident Providers to CC Resident Creating Document: JUAN C CHI, MIKE ~ Antibiotic Timeout Antibiotic Ordered?: Yes Subjective The patient has been evaluated at bedside. The patient is currently awake, oriented to person, place and time. Denies any pain. Objective Vital Signs Date Time Temp Pulse Resp B/P (MAP) Pulse Ox O2 Delivery O2 Flow Rate FiO2 11/07/24 10:37 96 Room Air* 0 21 11/07/24 10:00 97.5 85 15 145/78 (100) Physical exam: General: Awake, alert, not confused, not agitated, not in acute distress, well cooperated during the physical. HEENT: Conjunctive are pink, sclerae clear, no icterus, pupil is equal in both sides, reactive to light, no ear discharge, no pharyngeal erythema or an edema. Neck: Supple, no JVD, no lymphadenopathy and thyromegaly. Chest: Equal air entry on both lungs, no additional sounds no rhonchi no wheezing at the moment, presence of scar in the level of the chest. Cardiovascular: S1-S2 regular sinus rhythm and, regular rate, no gallops, no rubs, no murmurs. Abdomen: No visible peristalsis, Bowel sounds present on auscultation, soft, nontender, no guarding, no rigidity Extremities: No obvious deformities, no pitting edema bilaterally, capillary refill intact, peripheral pulsations are intact on both sides Central Nervous System: No focal neurological deficits, no motor or sensory weakness in all 4 extremities, could move all 4 extremities, 2+ deep tendon reflexes, negative Babinski. Musculoskeletal: No joint swelling, deformities, inflammations, and no scoliosis and back tenderness Skin: Warm and dry, presence of dermatitis stasis changes bilaterally. Result Diagram: 11/07/2440811/07/24408 Assessment Assessment 79 years old male with history of hypertension, parkinsonism, atrial fibrillation brought to the ED from home [facility] rehab facility with concerning of UTI and weakness Plan Plan Sepsis: (sepsis criteria: Presence of source of infection, HR>90, temperature>100.4): Pyelonephritis: BPH: UA positive, urine and blood culture culture sent Fever reported in rehab facility CT: Mild left hydroureteronephrosis and perinephric inflammation. No sizable, obstructing urinary tract calculi identified. IV fluid 500 cc started we will continue 50 mL/hour started Ceftriaxone started, we follow blood culture urine culture. 11/06/2024: Blood culture showing Gram-negative rods. Continue ceftriaxone 1 g IV daily. Culturelle [address] mmu b.i.d. On NS at 50 mL/hour. 11/07/2024: Blood culture showing E. Coli. Sensitive to meropenem. Discontinue ceftriaxone. Infectious Disease, Dr. Sebastian consulted. Awaiting recommendations. On meropenem IV b.i.d. Culturelle 94780 mmu b.i.d. On tamsulosin 0.4 mg HS. On NS at 50 mL/hour. Normocytic hypochromic anemia Stable from last visit, Iron panel ordered Iron 19, TIBC 196, percentage saturation 10. Suggesting anemia of chronic disease. Acute on chronic kidney failure-improving: BUN 33, creatinine 1.56 kidney function getting worse compared to two months ago Secondary to dehydration Creatinine trended down to 1.13 from 1.54. On NS at 50 ml/hr Other comorbidities AFib rate control, hypertension Holding blood pressure medications due to soft blood pressures. Code Status: Full code DVT prophylaxis: Eliquis Analgesia/sedation: Tylenol Line/tube: PIV GI prophylaxis: Protonix Nutrition: Regular, oral supplements. PT: Yes Prognosis: Guarded Disposition: Continue medical management. Juan C Aguila Internal Medicine Resident [facility] Date of Service: Nov 07, 2024 Billing Provider: PAOLO WAHL MD Common Visit Codes: [id number] INP/OBS CARE(HIGH) JUAN C CHI, RES Nov 07, 2024 17:38 PAOLO WAHL MD Nov 07, 2024 21:31
[2024-11-07] MEDS: lactose-reduced food (Ensure Enlive) - 237ml bottle PO SCH (17:58)
[2024-11-08 05:05] LABS: BASOPHILS % (AUTO) 0.4 % (0-1); EOSINOPHILS # (AUTO) 0.1 X10'3 (0-0.9); EOSINOPHILS % (AUTO) 1.4 % (0-6); HEMATOCRIT 31.1 % (42.0-52.0); HEMOGLOBIN 10.6 g/dl (14.0-17.9); LYMPHOCYTES # (AUTO) 0.9 X10'3 (1.1-4.8); LYMPHOCYTES % (AUTO) 11.1 % (21-51); MEAN CORPUSCULAR HEMOGLOBIN 28.9 PG (27.0-31.0); MEAN PLATELET VOLUME 7.5 FL (7.4-10.4); MONOCYTES # (AUTO) 2.2 X10'3 (0-0.9); MONOCYTES % (AUTO) 26.2 % (2-12); NEUTROPHILS # (AUTO) 5.1 X10'3 (1.8-7.7); NEUTROPHILS % (AUTO) 60.9 % (42-75); PLATELET COUNT 241 X10'3 (140-440); RED BLOOD COUNT 3.66 X10'6 (4.70-6.10); RED CELL DISTRIBUTION WIDTH 14.7 % (11.5-14.5); WHITE BLOOD COUNT 8.3 X10'3 (4.5-11.0)
[2024-11-08 05:21] LABS: ALANINE AMINOTRANSFERASE 8 U/L (12-78); ALBUMIN 2.8 G/DL (3.4-5.0); ALBUMIN/GLOBULIN RATIO 0.7 (1.1-1.5); ALKALINE PHOSPHATASE 77 IU/L (46-116); ANION GAP 10 (8-16); ASPARTATE AMINO TRANSFERASE 35 U/L (10-37); BILIRUBIN,TOTAL 0.6 MG/DL (0.1-1.0); BLOOD UREA NITROGEN 19 MG/DL (7-18); BUN/CREATININE RATIO 16.5 (10.0-20.0); CALCIUM 9.1 MG/DL (8.5-10.1); CHLORIDE 108 MMOL/L (99-107); CREATININE 1.15 MG/DL (0.60-1.10); GLUCOSE 105 MG/DL (70-104); MAGNESIUM 2.2 MG/DL (1.5-2.4); POTASSIUM 4.3 MMOL/L (3.5-5.1); SODIUM 142 MMOL/L (135-145); TOTAL CARBON DIOXIDE 23.9 MMOL/L (24-32); TOTAL PROTEIN 7.1 G/DL (6.4-8.2); eCRCL 43 ML/MIN; eGFR 75 ML/MIN
[2024-11-08 06:00] VITALS: BP 144/79; PULSE 87; RESP 16; TEMP 98.8; O2SAT 100
[2024-11-08 08:00] VITALS: RESP 16; O2SAT 100
[2024-11-08 11:00] VITALS: BP 143/72; PULSE 85; RESP 18; TEMP 97.7; O2SAT 99
--- NOTE | 2024-11-08 11:45 | CONSULTATION ---
DATE OF CONSULTATION: 11/08/2024 DICTATING PHYSICIAN: Monty Sebastian MD REASON FOR CONSULTATION: I am seeing the patient at the request of Dr. Barajas for evaluation of ESBL E. coli sepsis. HISTORY OF PRESENT ILLNESS: The patient is a 79-year-old -[place] male with Parkinson's disease who was transferred to this facility from [facility] for evaluation of fever. He is known to have a sacral pressure ulcer. There was concern for urinary tract infection when he came in based on urinalysis. Both blood and urine cultures have since grown out ESBL E. coli. His antibiotics were changed over to Meropenem yesterday. He is not having any fever at this time. He did have some fever when he first came in up to 101.9. He apparently has been at [facility] for a couple of months. He came into this hospital from home back in early August. He was living with his sister at the time. I believe he went to [facility] at that point and he has been there for nearly 3 months. I believe the plan is to go back to that facility. PAST MEDICAL HISTORY: * Parkinson's disease. * Hypertension. * Dyslipidemia. * Atrial fibrillation. * Stroke. * Sacral pressure ulcer. ALLERGIES: None. MEDICATIONS: * Meropenem 1 g every 12 hours. * Apixaban. * Atorvastatin. * Sinemet. * Vitamin D. * Colace. * Glycopyrrolate. * Lactobacillus. * Mirtazapine. * Tamsulosin. FAMILY HISTORY: Noncontributory. SOCIAL HISTORY: Once again, he was living with his sister prior to recent hospitalizations. He is now at [facility]. PHYSICAL EXAMINATION: VITAL SIGNS: He is afebrile with stable vital signs. GENERAL: He is a pleasant elderly male sitting up looking stable. His speech is slow, but he does seem to answer questions appropriately. HEENT: Sclerae anicteric. Mouth is clear. NECK: Supple. LUNGS: Clear to auscultation bilaterally. HEART: Regular rate and rhythm. ABDOMEN: Soft, nontender, and nondistended. EXTREMITIES: No significant edema. LABORATORY DATA: White blood cell count is 8300, hemoglobin 10.6, platelets 241,000, creatinine 1.15, urinalysis with 50-100 white blood cells. Blood cultures are growing ESBL E. coli. Urine culture is growing the same organism. CT abdomen/pelvis demonstrates mild left hydroureteronephrosis and perinephric inflammation. No obstructing process was identified. He does have significant prostate enlargement. IMPRESSION: * ESBL E. coli sepsis due to urinary source. * ESBL E. coli urinary tract infection in the setting of BPH. * Parkinson disease. * Sacral pressure ulcer. PLAN: He will continue with meropenem 1 g every 12 hours. I would recommend at least one week of treatment to deal with his urinary tract infection and associated bloodstream infection. He should be able to continue this therapy at [facility] and a midline catheter could be placed. Hopefully, this will not become a recurrent issue for him. Thank you for allowing me to participate in patient's care. Monty Sebastian MD TID: [id number] RECEIPT: [id number] APOORVA/GERTRUDIS
--- NOTE | 2024-11-08 15:14 | PROGRESS NOTE- Residence ---
Progress Note - Resident Providers to CC Resident Creating Document: JASPREET CHI, MIKE ~ Antibiotic Timeout Antibiotic Ordered?: Yes Subjective The patient has been evaluated at bedside. The patient is currently active, more awake, oriented to place person and time. Currently denies any symptoms. Objective Vital Signs Date Time Temp Pulse Resp B/P (MAP) Pulse Ox O2 Delivery O2 Flow Rate FiO2 11/08/24 11:00 97.7 85 18 143/72 (95) 99 Room Air 11/07/24 10:37 0 21 Physical exam: General: Awake, alert, not confused, not agitated, not in acute distress, well cooperated during the physical. HEENT: Conjunctive are pink, sclerae clear, no icterus, pupil is equal in both sides, reactive to light, no ear discharge, no pharyngeal erythema or an edema. Neck: Supple, no JVD, no lymphadenopathy and thyromegaly. Chest: Equal air entry on both lungs, no additional sounds no rhonchi no wheezing at the moment, presence of scar in the level of the chest. Cardiovascular: S1-S2 regular sinus rhythm and, regular rate, no gallops, no rubs, no murmurs. Abdomen: No visible peristalsis, Bowel sounds present on auscultation, soft, nontender, no guarding, no rigidity Extremities: No obvious deformities, no pitting edema bilaterally, capillary refill intact, peripheral pulsations are intact on both sides Central Nervous System: No focal neurological deficits, no motor or sensory weakness in all 4 extremities, could move all 4 extremities, 2+ deep tendon reflexes, negative Babinski. Musculoskeletal: No joint swelling, deformities, inflammations, and no scoliosis and back tenderness Skin: Warm and dry, presence of dermatitis stasis changes bilaterally. Result Diagram: 11/08/24 04311/08/24 043 Assessment Assessment 79 years old male with history of hypertension, parkinsonism, atrial fibrillation brought to the ED from [facility] rehab facility with concerning of UTI and weakness Plan Plan Sepsis: (sepsis criteria: Presence of source of infection, HR>90, temperature>100.4): Pyelonephritis: BPH: UA positive, urine and blood culture culture sent Fever reported in rehab facility CT: Mild left hydroureteronephrosis and perinephric inflammation. No sizable, obstructing urinary tract calculi identified. IV fluid 500 cc started we will continue 50 mL/hour started Ceftriaxone started, we follow blood culture urine culture. 11/06/2024: Blood culture showing Gram-negative rods. Continue ceftriaxone 1 g IV daily. Culturelle 15666 mmu b.i.d. On NS at 50 mL/hour. 11/07/2024: Blood culture showing E. Coli. Sensitive to meropenem. Discontinue ceftriaxone. Infectious Disease, Dr. Sebastian consulted. Awaiting recommendations. On meropenem IV b.i.d. Culturelle 28470 mmu b.i.d. On tamsulosin 0.4 mg HS. On NS at 50 mL/hour. 11/08/2024: Continue meropenem. Dr. Sebastian consulted, recommends therapy for two weeks. PICC line. Anticipated discharge to [facility] rehab tomorrow Normocytic hypochromic anemia Stable from last visit, Iron panel ordered Iron 19, TIBC 196, percentage saturation 10. Suggesting anemia of chronic disease. Acute on chronic kidney failure-improving: BUN 33, creatinine 1.56 kidney function getting worse compared to two months ago Secondary to dehydration Creatinine trended down to 1.13 from 1.54. On NS at 50 ml/hr Other comorbidities AFib rate control, hypertension Holding blood pressure medications due to soft blood pressures. Code Status: Full code DVT prophylaxis: Eliquis Analgesia/sedation: Tylenol Line/tube: PIV GI prophylaxis: Protonix Nutrition: Regular, oral supplements. PT: Yes Prognosis: Guarded Disposition: Continue medical management. Anticipated discharge to [facility] tomorrow. Jaspreet Aguila Internal Medicine Resident [facility] Date of Service: Nov 08, 2024 Billing Provider: PAOLO WAHL MD Common Visit Codes: [id number] INP/OBS CARE(HIGH) JASPREET CHI, RES Nov 08, 2024 15:14 PAOLO WAHL MD Nov 08, 2024 21:14
[2024-11-08 20:00] VITALS: RESP 16; O2SAT 98
[2024-11-08 22:00] VITALS: BP 135/72; PULSE 88; RESP 16; TEMP 98; O2SAT 98
[2024-11-09] VITALS (7 sets, daily range): BP systolic 114–173; BP diastolic 68–94; PULSE 83–94; RESP 15–17; TEMP 96.5–97.9; O2SAT 96–98
[2024-11-09 06:11] LABS: BASOPHILS # (AUTO) 0.1 X10'3 (0-0.2); BASOPHILS % (AUTO) 0.6 % (0-1); EOSINOPHILS # (AUTO) 0.2 X10'3 (0-0.9); EOSINOPHILS % (AUTO) 1.8 % (0-6); HEMATOCRIT 28.9 % (42.0-52.0); HEMOGLOBIN 10.1 g/dl (14.0-17.9); LYMPHOCYTES % (AUTO) 10.4 % (21-51); MEAN CORPUSCULAR VOLUME 82.9 FL (78-98); MEAN PLATELET VOLUME 7.6 FL (7.4-10.4); MONOCYTES # (AUTO) 1.5 X10'3 (0-0.9); MONOCYTES % (AUTO) 16.4 % (2-12); NEUTROPHILS # (AUTO) 6.6 X10'3 (1.8-7.7); NEUTROPHILS % (AUTO) 70.8 % (42-75); PLATELET COUNT 292 X10'3 (140-440); RED BLOOD COUNT 3.49 X10'6 (4.70-6.10); RED CELL DISTRIBUTION WIDTH 14.8 % (11.5-14.5); WHITE BLOOD COUNT 9.4 X10'3 (4.5-11.0)
[2024-11-09 06:20] LABS: ALANINE AMINOTRANSFERASE 10 U/L (12-78); ALBUMIN 2.7 G/DL (3.4-5.0); ALBUMIN/GLOBULIN RATIO 0.6 (1.1-1.5); ALKALINE PHOSPHATASE 79 IU/L (46-116); ANION GAP 8 (8-16); ASPARTATE AMINO TRANSFERASE 28 U/L (10-37); BILIRUBIN,TOTAL 0.5 MG/DL (0.1-1.0); BLOOD UREA NITROGEN 21 MG/DL (7-18); BUN/CREATININE RATIO 17.9 (10.0-20.0); CALCIUM 9.2 MG/DL (8.5-10.1); CHLORIDE 108 MMOL/L (99-107); CREATININE 1.17 MG/DL (0.60-1.10); GLUCOSE 104 MG/DL (70-104); MAGNESIUM 2.1 MG/DL (1.5-2.4); POTASSIUM 4.3 MMOL/L (3.5-5.1); SODIUM 141 MMOL/L (135-145); TOTAL CARBON DIOXIDE 25.4 MMOL/L (24-32); eCRCL 43 ML/MIN; eGFR 73 ML/MIN
[2024-11-09 06:57] LABS: PLATELET ESTIMATE NORMAL; TOTAL CELLS COUNTED 100
--- NOTE | 2024-11-09 11:50 | PROGRESS NOTE- Residence ---
Progress Note - Resident Providers to CC Resident Creating Document: COCO PYLE RES ~ Antibiotic Timeout Antibiotic Ordered?: Yes Subjective The patient has been evaluated at bedside. Awaiting insurance auth, no new concerns or complaints at this time. Objective Vital Signs Date Time Temp Pulse Resp B/P (MAP) Pulse Ox O2 Delivery O2 Flow Rate FiO2 11/09/24 09:55 96.5 89 16 114/68 (83) 97 Room Air 11/07/24 10:37 0 21 Result Diagram: 11/09/24 0502 11/09/24 0502 General: Awake, alert, not confused, not agitated, not in acute distress, well cooperated during the physical. HEENT: Conjunctive are pink, sclerae clear, no icterus, pupil is equal in both sides, reactive to light, no ear discharge, no pharyngeal erythema or an edema. Neck: Supple, no JVD, no lymphadenopathy and thyromegaly. Chest: Equal air entry on both lungs, no additional sounds no rhonchi no wheezing at the moment, presence of scar in the level of the chest. Cardiovascular: S1-S2 regular sinus rhythm and, regular rate, no gallops, no rubs, no murmurs. Abdomen: No visible peristalsis, Bowel sounds present on auscultation, soft, nontender, no guarding, no rigidity Extremities: No obvious deformities, no pitting edema bilaterally, capillary refill intact, peripheral pulsations are intact on both sides Central Nervous System: No focal neurological deficits, no motor or sensory weakness in all 4 extremities, could move all 4 extremities, 2+ deep tendon reflexes, negative Babinski. Musculoskeletal: No joint swelling, deformities, inflammations, and no scoliosis and back tenderness Skin: Warm and dry, presence of dermatitis stasis changes bilaterally. Assessment Assessment 79 years old male with history of hypertension, parkinsonism, atrial fibrillation brought to the ED from home [facility] rehab facility with concerning of UTI and weakness Plan Plan Sepsis: (sepsis criteria: Presence of source of infection, HR>90, temperature>100.4): Pyelonephritis: BPH: UA positive, urine and blood culture culture sent Fever reported in rehab facility CT: Mild left hydroureteronephrosis and perinephric inflammation. No sizable, obstructing urinary tract calculi identified. IV fluid 500 cc started we will continue 50 mL/hour started Ceftriaxone started, we follow blood culture urine culture. 11/06/2024: Blood culture showing Gram-negative rods. Continue ceftriaxone 1 g IV daily. Culturelle 83096 mmu b.i.d. On NS at 50 mL/hour. 11/07/2024: Blood culture showing E. Coli. Sensitive to meropenem. Discontinue ceftriaxone. Infectious Disease, Dr. Sebastian consulted. Awaiting recommendations. On meropenem IV b.i.d. Culturelle 34797 mmu b.i.d. On tamsulosin 0.4 mg HS. On NS at 50 mL/hour. 11/09/2024: Continue meropenem. Dr. Sebastian consulted, recommends therapy for two weeks. PICC line. Anticipated discharge to [facility] once insurance auth is done, will likely stay over for the weekend. Normocytic hypochromic anemia Stable from last visit, Iron panel ordered Iron 19, TIBC 196, percentage saturation 10. Suggesting anemia of chronic disease. Acute on chronic kidney failure-improving: BUN 33, creatinine 1.56 kidney function getting worse compared to two months ago Secondary to dehydration Creatinine trended down to 1.13 from 1.54. DC fluids Other comorbidities AFib rate control, hypertension Holding blood pressure medications due to soft blood pressures. Code Status: Full code DVT prophylaxis: Eliquis Analgesia/sedation: Tylenol Line/tube: PIV GI prophylaxis: Protonix Nutrition: Regular, oral supplements. PT: Yes Prognosis: Guarded Disposition: Continue medical management. Discharge plan to [facility], awaiting insurance auth. Coco Pyle IM Resident PGY 2 Date of Service: Nov 09, 2024 Billing Provider: PAOLO WAHL MD Common Visit Codes: [id number] INP/OBS CARE(HIGH) COCO PYLE, RES Nov 09, 2024 11:50 PAOLO WAHL MD Nov 11, 2024 12:02
[2024-11-10] MEDS: bisacodyl 10mg suppository rectal RC STA (02:33)
[2024-11-10 06:00] VITALS: BP 144/83; PULSE 76; PULSE 81; RESP 14; TEMP 97.3; TEMP 98.1; O2SAT 98
[2024-11-10 06:14] LABS: BASOPHILS # (AUTO) 0.1 X10'3 (0-0.2); BASOPHILS % (AUTO) 0.6 % (0-1); EOSINOPHILS # (AUTO) 0.1 X10'3 (0-0.9); EOSINOPHILS % (AUTO) 1.3 % (0-6); HEMATOCRIT 29.4 % (42.0-52.0); HEMOGLOBIN 10.2 g/dl (14.0-17.9); LYMPHOCYTES % (AUTO) 9.8 % (21-51); MEAN CORPUSCULAR HEMOGLOBIN 28.6 PG (27.0-31.0); MEAN CORPUSCULAR HGB CONC 34.6 g/dL (33.0-36.5); MEAN CORPUSCULAR VOLUME 82.6 FL (78-98); MEAN PLATELET VOLUME 7.7 FL (7.4-10.4); MONOCYTES # (AUTO) 1.1 X10'3 (0-0.9); MONOCYTES % (AUTO) 10.7 % (2-12); NEUTROPHILS # (AUTO) 7.9 X10'3 (1.8-7.7); NEUTROPHILS % (AUTO) 77.6 % (42-75); PLATELET COUNT 314 X10'3 (140-440); RED BLOOD COUNT 3.56 X10'6 (4.70-6.10); RED CELL DISTRIBUTION WIDTH 14.8 % (11.5-14.5); WHITE BLOOD COUNT 10.2 X10'3 (4.5-11.0)
[2024-11-10 06:28] LABS: ALANINE AMINOTRANSFERASE 11 U/L (12-78); ALBUMIN/GLOBULIN RATIO 0.7 (1.1-1.5); ALKALINE PHOSPHATASE 75 IU/L (46-116); ANION GAP 8 (8-16); ASPARTATE AMINO TRANSFERASE 42 U/L (10-37); BILIRUBIN,TOTAL 0.7 MG/DL (0.1-1.0); BLOOD UREA NITROGEN 17 MG/DL (7-18); BUN/CREATININE RATIO 15.2 (10.0-20.0); CALCIUM 9.5 MG/DL (8.5-10.1); CHLORIDE 106 MMOL/L (99-107); CREATININE 1.12 MG/DL (0.60-1.10); GLUCOSE 97 MG/DL (70-104); POTASSIUM 4.3 MMOL/L (3.5-5.1); SODIUM 143 MMOL/L (135-145); TOTAL CARBON DIOXIDE 29.4 MMOL/L (24-32); TOTAL PROTEIN 7.4 G/DL (6.4-8.2); eCRCL 44 ML/MIN; eGFR 77 ML/MIN
[2024-11-10 08:00] VITALS: RESP 16; O2SAT 98
[2024-11-10 11:00] VITALS: BP 105/64; PULSE 89; RESP 16; TEMP 97.3; O2SAT 98
--- NOTE | 2024-11-10 13:09 | PROGRESS NOTE- Residence ---
Progress Note - Resident Providers to CC Resident Creating Document: JUAN C CHI, MIKE ~ Antibiotic Timeout Antibiotic Ordered?: Yes Subjective The patient has been evaluated at bedside. The patient is currently awake, oriented to person, place and time. Asking about insurance approval. Objective Vital Signs Date Time Temp Pulse Resp B/P (MAP) Pulse Ox O2 Delivery O2 Flow Rate FiO2 11/10/24 08:00 16 98 Room Air 11/10/24 06:00 97.3 76 144/83 (103) 11/07/24 10:37 0 21 Physical exam: General: Awake, alert, not confused, not agitated, not in acute distress, well cooperated during the physical. HEENT: Conjunctive are pink, sclerae clear, no icterus, pupil is equal in both sides, reactive to light, no ear discharge, no pharyngeal erythema or an edema. Neck: Supple, no JVD, no lymphadenopathy and thyromegaly. Chest: Equal air entry on both lungs, no additional sounds no rhonchi no wheezing at the moment, presence of scar in the level of the chest. Cardiovascular: S1-S2 regular sinus rhythm and, regular rate, no gallops, no rubs, no murmurs. Abdomen: No visible peristalsis, Bowel sounds present on auscultation, soft, nontender, no guarding, no rigidity Extremities: No obvious deformities, no pitting edema bilaterally, capillary refill intact, peripheral pulsations are intact on both sides, presence of PICC line in the right upper extremity. Central Nervous System: No focal neurological deficits, no motor or sensory weakness in all 4 extremities, could move all 4 extremities, 2+ deep tendon reflexes, negative Babinski. Musculoskeletal: No joint swelling, deformities, inflammations, and no scoliosis and back tenderness Skin: Warm and dry, presence of dermatitis stasis changes bilaterally. Result Diagram: 11/10/2437 11/10/24536 Assessment Assessment 79 years old male with history of hypertension, parkinsonism, atrial fibrillation brought to the ED from [facility] with concerning of UTI and weakness Plan Plan Sepsis: (sepsis criteria: Presence of source of infection, HR>90, temperature>100.4): Pyelonephritis: BPH: UA positive, urine and blood culture culture sent Fever reported in rehab facility CT: Mild left hydroureteronephrosis and perinephric inflammation. No sizable, obstructing urinary tract calculi identified. IV fluid 500 cc started we will continue 50 mL/hour started Ceftriaxone started, we follow blood culture urine culture. 11/06/2024: Blood culture showing Gram-negative rods. Continue ceftriaxone 1 g IV daily. Culturelle [id number] mmu b.i.d. On NS at 50 mL/hour. 11/07/2024: Blood culture showing E. Coli. Sensitive to meropenem. Discontinue ceftriaxone. Infectious Disease, Dr. Sebastian consulted. Awaiting recommendations. On meropenem IV b.i.d. Culturelle 06091 mmu b.i.d. On tamsulosin 0.4 mg HS. On NS at 50 mL/hour. 11/10/2024: Continue meropenem. Dr. Sebastian consulted, recommends therapy for two weeks. Currently day 3. PICC line placed in the right upper arm. Extremity. Anticipated discharge to [facility] once insurance auth is done. Insurance authorization still pending. Possible discharge tomorrow. IV fluids discontinued. Normocytic hypochromic anemia Stable from last visit, Iron panel ordered Iron 19, TIBC 196, percentage saturation 10. Suggesting anemia of chronic disease. Acute on chronic kidney failure-improved: BUN 33, creatinine 1.56 kidney function getting worse compared to two months ago Secondary to dehydration Creatinine trended down to 1.13 from 1.54. Other comorbidities AFib rate control, hypertension Holding blood pressure medications due to soft blood pressures. Code Status: Full code DVT prophylaxis: Eliquis Analgesia/sedation: none Line/tube: PIV, PICC line GI prophylaxis: None Nutrition: Regular, oral supplements. PT: The patient will be discharged to [facility] rehab. Prognosis: Guarded Disposition: Continue medical management. Discharge plan to [facility], awaiting insurance auth. Juan C Aguila Internal Medicine Resident [facility] Date of Service: Nov 10, 2024 Billing Provider: DEANNA LEBLANC MD Common Visit Codes: [id number] INP/OBS CARE(HIGH) JUAN C CHI, RES Nov 10, 2024 13:09 DEANNA LEBLANC MD Nov 10, 2024 16:56
[2024-11-10 18:30] VITALS: BP 114/68; PULSE 81; RESP 14; TEMP 97.3; O2SAT 96
[2024-11-10 22:00] VITALS: BP 114/68; PULSE 81; RESP 14; TEMP 97.3; O2SAT 96
[2024-11-11 06:00] VITALS: BP 140/79; PULSE 80; RESP 16; TEMP 98.4; O2SAT 96
[2024-11-11 08:00] VITALS: RESP 16; O2SAT 96
[2024-11-11 09:43] LABS: BASOPHILS % (AUTO) 0.3 % (0-1); EOSINOPHILS # (AUTO) 0.1 X10'3 (0-0.9); EOSINOPHILS % (AUTO) 1.7 % (0-6); HEMATOCRIT 31.3 % (42.0-52.0); HEMOGLOBIN 10.7 g/dl (14.0-17.9); LYMPHOCYTES # (AUTO) 0.9 X10'3 (1.1-4.8); LYMPHOCYTES % (AUTO) 11.3 % (21-51); MEAN CORPUSCULAR HEMOGLOBIN 28.3 PG (27.0-31.0); MEAN CORPUSCULAR HGB CONC 34.3 g/dL (33.0-36.5); MEAN CORPUSCULAR VOLUME 82.6 FL (78-98); MEAN PLATELET VOLUME 6.9 FL (7.4-10.4); MONOCYTES # (AUTO) 0.6 X10'3 (0-0.9); MONOCYTES % (AUTO) 7.6 % (2-12); NEUTROPHILS # (AUTO) 6.5 X10'3 (1.8-7.7); NEUTROPHILS % (AUTO) 79.1 % (42-75); PLATELET COUNT 350 X10'3 (140-440); RED BLOOD COUNT 3.79 X10'6 (4.70-6.10); WHITE BLOOD COUNT 8.2 X10'3 (4.5-11.0)
[2024-11-11 10:00] VITALS: BP 130/65; PULSE 86; RESP 17; TEMP 98.3; O2SAT 98
[2024-11-11 10:09] LABS: ALANINE AMINOTRANSFERASE 22 U/L (12-78); ALBUMIN 2.9 G/DL (3.4-5.0); ALBUMIN/GLOBULIN RATIO 0.7 (1.1-1.5); ALKALINE PHOSPHATASE 73 IU/L (46-116); ANION GAP 6 (8-16); ASPARTATE AMINO TRANSFERASE 32 U/L (10-37); BILIRUBIN,TOTAL 0.6 MG/DL (0.1-1.0); BLOOD UREA NITROGEN 24 MG/DL (7-18); BUN/CREATININE RATIO 21.4 (10.0-20.0); CALCIUM 9.5 MG/DL (8.5-10.1); CHLORIDE 106 MMOL/L (99-107); CREATININE 1.12 MG/DL (0.60-1.10); GLUCOSE 106 MG/DL (70-104); SODIUM 142 MMOL/L (135-145); TOTAL CARBON DIOXIDE 30.3 MMOL/L (24-32); TOTAL PROTEIN 7.2 G/DL (6.4-8.2); eCRCL 44 ML/MIN; eGFR 77 ML/MIN
[2024-11-11] MEDS: lactose-reduced food (Ensure Enlive) - 237ml bottle PO SCH (15:14)
--- NOTE | 2024-11-11 18:49 | DISCHARGE SUMMARY-Residence ---
Discharge Summary Providers to CC Resident Creating Document: DEMARCO RODRIGUEZJASPREET LUIS, RES ~ Discharge Summary Admission Diagnosis: UTI, HYDRONEPHOSIS Hospital Course DATE OF ADMISSION: 11/05/2024 DATE OF DISCHARGE: 11/11/2024 Discharge Diagnosis\Comment: Sepsis: (sepsis criteria: Presence of source of infection, HR>90, temperature>100.4) Pyelonephritis BPH Normocytic hypochromic anemia Acute on chronic kidney failure-improved Other comorbidities Operations\Procedures: PICC line Consultants: Infectious Disease, Dr. Sebastian Complications: None Condition on DC: Stable Discharge Summary: HPI: 79 year with history of parkinsonism, hypertension, CVA, AFib was transferred from [facility] to our hospital concerning for abnormal lab and fever. Patient is poor historian and information gathered from medical chart staff and medical report. As rehab facility medical staff patient complain of muscle ache weakness and fever, temperature 102.2, and UA positive. Patient he is awake and alert but weak and denied any abdominal/flank pain, however reported urinary emergency and dribbling. Denied any diarrhea, constipation or any other new symptoms. Hospital course: 79-year-old male patient came to the hospital with chief complaint of altered level of consciousness. Abnormal lab work and fever was evidenced. The patient was admitted with sepsis secondary to pyelonephritis. Urine cultures were obtained which came back positive for E coli sensitive for meropenem. Infectious Disease was consulted who recommended two weeks of IV antibiotics based on meropenem 1000 mg every 12 hours due to kidney function. Upon the following days the patient showed significant improvement of mental status. The patient underwent PICC line placement for further management with IV antibiotics. The patient remained hemodynamically stable. The patient will be discharged to [facility]. Discharge course: The patient remained hemodynamically stable. The patient will be discharged with the following instructions: CBC and CMP within two weeks. Continue meropenem 1000 mg every 12 hours for 10 more days. Culturelle [address] mmu b.i.d.. Continue home medication: Cholecalciferol 5000 unit daily. Carbidopa levodopa one tablet t.i.d.. Mirtazapine 7.5 mg at bedtime. Atorvastatin one tablet of 20 mg at bedtime. Glycopyrrolate 1 mg every 12 hours. Eliquis one tablet of 5 mg every 12 hours. Vital Signs Date Time Temp Pulse Resp B/P (MAP) Pulse Ox O2 Delivery O2 Flow Rate FiO2 11/11/24 10:00 98.3 86 17 130/65 (86) 98 Room Air 11/11/24 08:00 0.0 21 Physical exam: General: Awake, alert, not confused, not agitated, not in acute distress, well cooperated during the physical. HEENT: Conjunctive are pink, sclerae clear, no icterus, pupil is equal in both sides, reactive to light, no ear discharge, no pharyngeal erythema or an edema. Neck: Supple, no JVD, no lymphadenopathy and thyromegaly. Chest: Equal air entry on both lungs, no additional sounds no rhonchi no wheezing at the moment, presence of scar in the level of the chest. Cardiovascular: S1-S2 regular sinus rhythm and, regular rate, no gallops, no rubs, no murmurs. Abdomen: No visible peristalsis, Bowel sounds present on auscultation, soft, nontender, no guarding, no rigidity Extremities: No obvious deformities, no pitting edema bilaterally, capillary refill intact, peripheral pulsations are intact on both sides, presence of PICC line in the right upper extremity. Central Nervous System: No focal neurological deficits, no motor or sensory weakness in all 4 extremities, could move all 4 extremities, 2+ deep tendon reflexes, negative Babinski. Musculoskeletal: No joint swelling, deformities, inflammations, and no scoliosis and back tenderness Skin: Warm and dry, presence of dermatitis stasis changes bilaterally. Laboratory Tests Test 11/10/24 05:37 11/11/24 09:28 White Blood Count 10.2 X10'3 8.2 X10'3 Red Blood Count 3.56 X10'6 3.79 X10'6 Hemoglobin 10.2 g/dl 10.7 g/dl Hematocrit 29.4 % 31.3 % Mean Corpuscular Volume 82.6 FL 82.6 FL Mean Corpuscular Hemoglobin 28.6 PG 28.3 PG Mean Corpuscular Hemoglobin Concent 34.6 g/dL 34.3 g/dL Red Cell Distribution Width 14.8 % 15.0 % Platelet Count 314 X10'3 350 X10'3 Mean Platelet Volume 7.7 FL 6.9 FL Neutrophils (%) (Auto) 77.6 % 79.1 % Lymphocytes (%) (Auto) 9.8 % 11.3 % Monocytes (%) (Auto) 10.7 % 7.6 % Eosinophils (%) (Auto) 1.3 % 1.7 % Basophils (%) (Auto) 0.6 % 0.3 % Neutrophils # (Auto) 7.9 X10'3 6.5 X10'3 Lymphocytes # (Auto) 1.0 X10'3 0.9 X10'3 Monocytes # (Auto) 1.1 X10'3 0.6 X10'3 Eosinophils # (Auto) 0.1 X10'3 0.1 X10'3 Basophils # (Auto) 0.1 X10'3 0.0 X10'3 CBC Comment Sodium Level 143 MMOL/L 142 MMOL/L Potassium Level 4.3 MMOL/L 4.0 MMOL/L Chloride Level 106 MMOL/L 106 MMOL/L Carbon Dioxide Level 29.4 MMOL/L 30.3 MMOL/L Anion Gap 8 6 Blood Urea Nitrogen 17 MG/DL 24 MG/DL Creatinine 1.12 MG/DL 1.12 MG/DL Estimated GFR/1.73 m2 77 ML/MIN 77 ML/MIN BUN/Creatinine Ratio 15.2 21.4 Glucose Level 97 MG/DL 106 MG/DL Calcium Level 9.5 MG/DL 9.5 MG/DL Total Bilirubin 0.7 MG/DL 0.6 MG/DL Aspartate Amino Transf (AST/SGOT) 42 U/L 32 U/L Alanine Aminotransferase (ALT/SGPT) 11 U/L 22 U/L Alkaline Phosphatase 75 IU/L 73 IU/L Total Protein 7.4 G/DL 7.2 G/DL Albumin 3.0 G/DL 2.9 G/DL Globulin 4.4 G/DL 4.3 G/DL Albumin/Globulin Ratio 0.7 0.7 Chemistry Comments *Problems/Diagnosis: (1) Pyelonephritis Status: Resolved (2) Sepsis Status: Resolved (3) Metabolic encephalopathy Status: Resolved Total Time Spent on D/C: > 30 Minutes Date of Service: Nov 11, 2024 Billing Provider: DEANNA LEBLANC MD, FRANCO LUIS, RES Nov 11, 2024 18:49
== END 2024-11-11 18:36 | DRG 720 ==
LOC: ER 20:23 → ED HOLD 11-05 01:20 → PCU 3S 11-05 03:07 → SUR 3N 11-06 18:00
PROVIDERS: ADMIT Internal Medicine Sleep Medicine; ATTEND Internal Medicine
PROC: BW211ZZ Computerized Tomography (CT Scan) of Abdomen and Pelvis using Low Osmolar Contrast (ICD-10-PCS; principal; 2024-11-05)
PROC: 05HB33Z Insertion of Infusion Device into Right Basilic Vein, Percutaneous Approach (ICD-10-PCS; 2024-11-08)
PROC: B54MZZA Ultrasonography of Right Upper Extremity Veins, Guidance (ICD-10-PCS; 2024-11-08)
DX: A41.51 Sepsis due to Escherichia coli [E. coli] (principal); L89.152 Pressure ulcer of sacral region, stage 2; N17.9 Acute kidney failure, unspecified; G20.A1 Parkinson's disease without dyskinesia, without mention of fluctuations; E86.0 Dehydration; I48.91 Unspecified atrial fibrillation; D50.9 Iron deficiency anemia, unspecified; N13.6 Pyonephrosis; E78.5 Hyperlipidemia, unspecified; Z20.822 Contact with and (suspected) exposure to COVID-19; N18.9 Chronic kidney disease, unspecified; I12.9 Hypertensive chronic kidney disease with stage 1 through stage 4 chronic kidney disease, or unspecified chronic kidney disease; N40.0 Benign prostatic hyperplasia without lower urinary tract symptoms; Z16.12 Extended spectrum beta lactamase (ESBL) resistance; Z86.73 Personal history of transient ischemic attack (TIA), and cerebral infarction without residual deficits; Z87.440 Personal history of urinary (tract) infections; Z82.49 Family history of ischemic heart disease and other diseases of the circulatory system
CPT/HCPCS: 36410; 36415; 71045; 74177; 76937; 80048; 80053; 81001; 82570; 82728; 83540; 83550; 83605; 83735; 83930; 83935; 84132; 84145; 84153; 84154; 84156; 84300; 84540; 85007; 85025; 85651; 86140; 87040; 87077; 87081; 87088; 87186; 87207; 87811; 92508; 92616; 93005; 96365; 96367; 97161; 97530; 99285; A4314; A4349; A4615; A4620; A6212; A6213; A6266; A6449; A6590; C1751; G0378; J0131; J0696; J2185; J7030; J7040; J7120; Q9967